=== PATIENT | female | born 1990 | race Caucasian/White ===

== ENCOUNTER 2024-03-15 05:55 | Day surgery (SDC) | payer OTHER, SELFPAY ==
[2024-03-01 13:38] VITALS: BMI 31.6
[2024-03-15] VITALS (8 sets, daily range): BP systolic 115–136; BP diastolic 57–87; PULSE 83–97; RESP 15–22; TEMP 36.8; O2SAT 94–100
--- NOTE | 2024-03-15 06:54 | P.OP_ITS ---
Procedure Note - Detailed Date of Procedure 03/15/24 Pre-op Diagnosis Macromastia Post-op Diagnosis Same Procedure Performed Bilateral reduction mammaplasty Surgeon Ramon Mancilla MD Anesthesia General Findings Inverted T Superior medial pedicle Tissue removed: Right: 707 grams Left: 812 grams Lipoaspirate: 150 cc Description of Procedure She is here today for bilateral breast reduction. Previously and again today the risks, benefits, alternatives were discussed in extensive detail. I wanted her to be very realistic about the risks involved as well as expectations. We discussed aftercare and what to monitor for. She understands we can never guarantee final breast size and there will always be asymmetry. I was very upfront and honest about the risks of sensation change and even nipple loss (). Made sure answered all of her questions to her satisfaction today and consent was obtained. She was marked in the preoperative holding area with their verification. The patient was taken to the operating room placed supine on the operating table. Anesthesia was provided by anesthesiology. She was prepped and draped in a standard sterile fashion. A surgical time-out was taken. Stab incisions were made and I tumesced with a tumescent solution. Suction lipectomy of lateral breast / chest wall was completed for contouring based on S.A.F.E. liposuction techniques utilizing a 4mm merecedes cannula. This was based on preoperative planning, intraoperative observation, and a rolling pinch test which was in full agreement. I marked out the nipple-areolar complex at 42 mm. I then de-epithelialized the pedicle. The pedicle was well left well more than 2 cm in thickness. I then removed the inferior portion of the breast as well as the central keel to get shape based on preoperative planning. At this point copiously irrigated with saline solution and verified a strict hemostasis. I reapproximated the pillars using a 2-0 PDS. I tailor tacked the breast into place with jeaneth. She was placed in a sitting position. I verified the nipple-areolar complex position based on preoperative markings, intraoperative measurements, and observation which were in full agreement. This nipple-areolar complex was marked at 42 mm in size. I then placed supine and de-epithelialized this. Nipple-areolar complex was inset with 3-0 Monocryl. I closed IMF deep with 1 strattafix. I closed the vertical incision with 3-0 Monocryl in the IMF with 3- 0 stratafix. Then everything was closed using a running subcuticular 4-0 Monocryl and tissue glue. A dressing was placed followed by surgical bra. Patient was awoke and taken to PACU without difficulty. All instrument sponge counts were correct at the end of the case. Estimated Blood Loss 100 Drains No Packing No Pathology Yes (bilateral breast reduction) Complications No immediate complications Condition Stable Disposition PACU
--- NOTE | 2024-03-15 06:54 | WPDHPUPDATE1 ---
History and Physical Update Update Date/Time: 03/15/24 06:54 History and Physical has been reviewed, including an updated exam of the patient. There are NO changes in the patient's condition. Risks, benefits, and alternatives have been discussed and questions answered. Patient agrees to proceed with procedure.
--- NOTE | 2024-03-15 06:58 | P.PNAN_ITS ---
Anes - Initial Pre Proc Eval Procedure: Operation Date: 03/15/24 07:30 Proposed Procedures p Bilateral Breast Reduction Mammoplasty - Ramon Mancilla MD Date/Time: 03/15/24 06:58 Surgeon: Ramon Mancilla MD Pre Op Diagnosis: Macromastia Patient Data Age: 34 Gender: F Height: 1.65 m Weight: 88.35 kg Last Vital Signs Temp 36.8 C 03/15/24 06:15 Pulse 97 03/15/24 06:15 Resp 15 03/15/24 06:15 BP 136/87 03/15/24 06:15 Pulse Ox 100 03/15/24 06:15 O2 Del Method Room Air 03/15/24 06:15 Allergies Allergy/AdvReac Type Severity Reaction Status Date / Time No Known Allergies Allergy Unknown Verified 03/15/24 06:14 Home Medications Medication Instructions Recorded Confirmed Type fluoxetine 40 mg capsule 40 mg PO DAILY 03/01/24 03/15/24 History mecobalamin (vitamin B12) 2,500 2,500 mcg PO DAILY 03/01/24 03/15/24 History mcg chewable tablet Patient hx anesthesia problems: none Family hx anesthesia problems: none Results Review: All pre-operative results and documents have been reviewed as part of the pre- operative evaluation. [facility] Past Medical History Medical History (Updated 03/15/24 @ 06:58 by Oz Pope DO) Anxiety Social History Social History Smoking status: Never smoker Second hand tobacco smoke exposure: Yes Alcohol intake: current Drinks per week: 2 Substance use type: does not use Living arrangements: with family Spiritual care concerns: No Anes - Eval Final PreProcedure Day of Procedure 03/15/24 06:58 Patient weight: obese Heart: regular rate and rhythm Lungs: clear to auscultation Airway: Mallampati scale class III Neurological: alert and oriented Last oral intake: >/= 8 hours ASA classification: II Emergent: no Anesthetic plan: proceed Anesthesia type and monitoring: general ETT and standard monitoring Results Review: All pre-operative results and documents have been reviewed as part of the pre- operative evaluation. Informed Consent: The patient's anesthetic plan and its attendant risks and benefits were discussed with the patient/family/POA. Questions were solicited and answers provided to the satisfaction of the patient/family/POA.
[2024-03-15] MEDS: SCOPOLAMINE 1 MG PATCH 1 PATCH TRANSDERM (07:18)
[2024-03-15] MEDS: LACTATED RINGERS 1,000 ML 30 ML IV CONT ×2 (07:18→10:27)
[2024-03-15] MEDS: ceFAZolin SODIUM 2 GM/20 ML SW SYRINGE IV PUSH (07:22)
[2024-03-15] MEDS: TRANEXAMIC ACID 1,000 MG/10 ML AMPUL 1000 MG IV PUSH (07:35)
[2024-03-15] MEDS: LACTATED RINGERS IRRIG 1,000 ML, LIDOCAINE HCL 1% LOCAL INJ 50 ML, EPINEPHrine HCL INJ ... INFILTRATE (07:44)
[2024-03-15] MEDS: fentaNYL CITRATE INJ (*CRX) 100 MCG/2 ML VIAL 25 MCG IV PUSH ×3 (11:03→11:27)
--- NOTE | 2024-03-15 11:23 | WPDANESPN ---
Anes - Prog Note Post-Op Date/Time: 03/15/24 11:23 Cardiovascular status: normal Respiratory status: normal Airway patency: baseline Mental status: baseline Post-Op hydration status: normal Vital Signs: Last Vital Signs Temp 36.8 C 03/15/24 10:27 Pulse 90 03/15/24 11:10 Resp 18 03/15/24 11:10 BP 128/65 03/15/24 11:10 Pulse Ox 95 03/15/24 11:10 O2 Del Method Room Air 03/15/24 11:10 O2 Flow Rate 6 03/15/24 10:40 Pain Score (VAS): 3 I/O: Intake & Output 03/14/24 03/15/24 03/15/24 23:59 07:59 15:59 Intake Total 100 Balance 100 Post-procedural complaints: none Patient Feedback: Patient satisfied with anesthetic care. Other Findings: Patient vital signs back to baseline. Patient denies nausea and vomiting. Patient's pain under control. Patient OK for discharge.
--- NOTE | 2024-03-15 11:29 | SUR.PHASEII ---
PT AWAKE AND ALERT. EATING ICE CHIPS. SPOUSE AT BEDSIDE
--- NOTE | 2024-03-15 12:24 | SUR.PHASEII ---
1200; PT WAS SITTING UPRIGHT, GETTING READY TO GET DRESSED AND BECAME NAUSEATED. MILD DIAPHORETIC. COLD CLOTH GIVEN TO PT. PT SITTING UP AND RESTING QUIETLY. SPOUSE AT BEDSIDE.
--- NOTE | 2024-03-15 12:42 | SUR.PHASEII ---
1226; PT DRESSED AND STANDING AT BEDSIDE. PT STATES SHES READY TO GO HOME.
== END 2024-03-15 12:30 ==
PROVIDERS: PCP Physician Assistant; Visit Provider Surgery Plastic and Reconstructive Surgery
PROC: 0HBV0ZZ Excision of Bilateral Breast, Open Approach (ICD-10-PCS; CPT 19318; principal; 2024-03-15 07:30)
DX: N62 Hypertrophy of breast (principal)
CPT/HCPCS: 19318

== ENCOUNTER 2024-03-15 12:51 | Outpatient (NON) | payer OTHER, SELFPAY | END 2024-03-15 12:52 | disposition home or self-care (01) | LOC: ANHLAB 12:53 | PROVIDERS: PCP Physician Assistant; Visit Provider Surgery Plastic and Reconstructive Surgery | DX: N62 Hypertrophy of breast (principal) | CPT/HCPCS: 88305 ==

== ENCOUNTER 2024-09-20 12:04 | Outpatient (CLI) | payer OTHER, SELFPAY ==
--- NOTE | ~2024-09-20 | MMUS_ITS ---
EXAMINATION: MM diagnostic elva BI w pedro, US breast BI limited HISTORY: Bilateral palpable abnormalities. Interval bilateral reduction mammoplasty since prior mammo graphy. TECHNIQUE: 3-D tomosynthesis images of the breasts were performed and synthetic 2-D images were gener ated. CAD analysis was submitted and interpreted. High resolution limited bilateral breast ultrasound was performed. COMPARISON: 01/08/2024 BREAST PARENCHYMAL COMPOSITION:Not Dense. There are scattered areas of fibroglandular density. FINDINGS: MAMMOGRAPHIC FINDINGS: There is probable postsurgical distortion bilaterally. There is a somewhat asymmetric spiculated dens ity at the posterior, central left breast, which is favored to represent postoperative change. No ann picious meniscal calcifications. ULTRASOUND: Sonographic imaging at the 6:00 position left breast, 9 cm from the nipple demonstrates a 1.4 x 0.9 x 0.5 cm somewhat mixed echogenicity area, overall wider than tall. This could reflect fat necrosis. Sonographic imaging of the right breast at the 5:00 position, 7 cm the nipple demonstrates no sonogra phic abnormality. IMPRESSION: 1.4 x 0.9 x 0.5 cm mixed echogenicity area in the left breast 6:00 position, which may correlate wit h an area of asymmetric density, which is felt overall to most likely represent postoperative change and/or evolving fat necrosis. Six-month follow-up left mammogram and ultrasound recommended. No mammographic or sonographic abnormality seen in the right breast. BI-RADS category 3, probably benign findings. Reviewed, dictated and finalized at [facility]. GER OPERATOR HELPER IMPRESSION: 1.4 x 0.9 x 0.5 cm mixed echogenicity area in the left breast 6:00 position, w hich may correlate with an area of asymmetric density, which is felt overall to most likely represent postoperative change and/or evolving fat necrosis. Six-m onth follow-up left mammogram and ultrasound recommended. No mammographic or sonographic abnormality seen in the right breast. BI-RADS category 3, probably benign findings. IMPRESSION: 1.4 x 0.9 x 0.5 cm mixed echogenicity area in the left breast 6:00 position, w hich may correlate with an area of asymmetric density, which is felt overall to most likely represent postoperative change and/or evolving fat necrosis. Six-m [facility] follow-up left mammogram and ultrasound recommended. No mammographic or sonographic abnormality seen in the right breast. BI-RADS category 3, probably benign findings.
--- OUTSIDE RECORDS SUMMARY | 2024-09-20 13:45 | XMS_ITS | Data Portability ---
[facility] Organization [facility] Address [address] [place] [address] Care Team Providers Care Building Architect Name Role Phone CHELY CURRYIE Primary Care Provider Unavailab le Assessment Encounter Date Assessment Date Assessment LastModified by Organization Details LastModified Time 02/08/2024 02/08/2024 Mammogram beginning of january. Not available 02/08/2024 09:15:50 Plan of Treatment Reminders Order Date Submit Date Provider Last Modified By Organization Details Last Modified Time Details Appointments None record ed. Lab None record ed. Referral None record ed. Procedures None record ed. Surgeries None record ed. Imaging None record ed. Medication Orders None record ed. Patient TargetsNo targets recorded. Patient Instructions Encounter Date Encounter Id Patient Instructions Last Modified By Organization Details Last Modified Time 02/08/2024 [id number] A healthy lifestyle: care instructions Not available 02/08/2024 09:30:33 Reason for Referral None Reported. Results Created Date Observation Date Name Description Value Unit Range Abnormal Flag Note LastModifiedBy Organization Detail LastModifiedTime Result Notes None recorded. Problems Name Problem SNOMED Code Status Onset Date Resolution Date Notes Provider Name and Address Organization Details Recorded Time Body mass index 30+ - obesity 336902606 Active 024 CLIFFORD Bridges Attn: Accounting ,[address] [place], [address] , [facility] 09:13:15 Obesity 252928074 Active 024 CLIFFORD Bridges Attn: Accounting ,[address] [facility], [place], [address] , [facility] 09:13:16 Problem Notes None recorded. Procedures Surgical History Date Name Laterality Status Provider Name and Address Organization Details Recorded Time Breast Surgery completed Liban Walter MA [facility] 02/08/2024 09:48:17 Imaging Results None recorded. Procedure Notes None recorded. Medical Equipment None Reported. Allergies No known drug allergies Medications Name Sig Start Date Stop Date Status Note LastModified by Organization Details LastModified Time fluoxetine 40 mg capsule TAKE 1 CAPSULE BY MOUTH ONCE DAILY active Not Available Not Available No t Available Elinest 0.3 mg-30 mcg tablet TAKE 1 TABLET BY MOUTH ONCE DAILY active Not Available Not Available No t Available Vitals Date Recorded Body height Body mass index (BMI) Body weight Respiratory rate Oxygen saturation Oxygen saturation in Arterial blood by Pulse oximetry Heart rate Systolic blood pressure Diastolic blood pressure Provider Name and Address Organization Details Last Updated DateTime 165.1 cm 32 kg/m2 57185.8 8 g 18 /min 98 % 98 % 97 /min 128 mm[Hg] 88 mm[Hg] Liban Walter MA [facility] 09:09:16 Date Recorded Systolic blood pressure Diastolic blood pressure Provider Name and Address Organization Details Last Updated DateTime 02/08/2024 120 mm[Hg] 80 mm[Hg] CLIFFORD Bridges Attn: Accounting,[address] [place], [address], [facility] 02/08/2024 09:30:10 Social History Question Answer Notes LastModified by Organizat ion Details LastModified Time Tobacco Smoking Status Never Smoker Liban Walter MA null, [facility] 02/08/2024 09:05:53 Do You Have An Advance Directive? No Information not available 02/08/2024 What Is Your Level Of Alcohol Consumption? Occasional Information not available 02/08/2024 Are You Blind Or Do You Have Difficulty Seeing? No Glasses Information not available 02/08/2024 What Is Your Level Of Caffeine Consumption? Moderate Information not available 02/08/2024 In The 14 Days Before Symptom Onset, Have You Had Close Contact With A [facility] COVID-19 While That Case Was Ill? No Information not available 02/08/2024 In The 14 Days Before Symptom Onset, Have You Had Close Contact With A Person Who Is Under Investigation For COVID-19 While That Person Was Ill? No [email or web address] Information not available 02/08/2024 Have You Been To An Area Known To Be High Risk For COVID-19? No [email or web address] Information not available 02/08/2024 Are You Deaf Or Do You Have Serious Difficulty Hearing? No Information not available 02/08/2024 What Type Of Diet Are You Following? REGULAR Information not available 02/08/2024 Are There Any Guns Present In Your Home? No Information not available 02/08/2024 What Was The Date Of Your Most Recent Tobacco Screening? 02/08/2024 Information not available 02/08/2024 Do You Use Your Seat Belt Or Car Seat Routinely? Yes Information not available 02/08/2024 Do You Have Smoke And Carbon Monoxide Detectors In Your Home? Yes Information not available 02/08/2024 Do You Feel Stressed (tense, Restless, Nervous, Or Anxious, Or Unable To Sleep At Night)? [id number] Information not available 02/08/2024 Do You Use Sunscreen Routinely? Yes Information not available 02/08/2024 Has Tobacco Cessation Counseling Been Provided? Yes Information not available 02/08/2024 On What Date Was Tobacco Cessation Counseling Provided? 02/08/2024 Information not available 02/08/2024 Do You Or Have You Ever Used Any Other Forms Of Tobacco Or Nicotine? No Information not available 02/08/2024 Sex: Female Functional Status Question Answer Note LastModified by Organizat ion Details LastModified Time Are you able to care for yourself? Yes [email or web address] Information not available 02/08/2024 What is your exercise level? Occasional Information not available 02/08/2024 Mental Status None recorded. Family History Relationship Description Onset Age of this Age Resolved Age Notes LastModified by Organization Details LastModified Time Father No current problems or disability [email or web address] Not available 02/07 09:06:14 Mother No current problems or disability [email or web address] Not available 02/07 09:06:14 Notes:pt. confirmed that the ir aren't any current problem in any of her family Medical History Condition Response Anxiety Disorder Y Gynecological History Statement/Question Response Flow Light Date of LMP 01/20/2024 Menses Monthly Y Duration of Flow (days) 28 Current Control Method BCPs LMP Approximate Obstetrics History GPAL:G 2 P 2 0 0 2 Type Value Full Term 2 Induced 0 Spontaneous 0 Premature 0 Living 2 Total 2 Past Encounters Encounter ID Performer Location Encounter Start Date Encounter Closed Date Diagnosis/Indication Diagnosis SNOMED-CT Code Diagnosis ICD10 Code Diagnosis Note [id number] CLIFFORD Bridges [facility] [employer] [place] [address] [place] [address] 02/08/2024 08:54:48 02/08/2024 09:32:13 Body mass index 30+ - obesity 426032417 Z68.32 BMI is 32 Obesity 890037503 E66.8 Adult heal th examination 679217414 Z00.00 Annual wellness exam is completed. All labs are still up-to-date from the last office. Long-term drug therapy 228494285 Z79.899 Health Concerns Section Related Observation LastModified by Organization Detai ls LastModified Time None Recorded Concern Status LastModified by Organization Details LastModified Time None Recorded Advance Directives Directive N: Payers Encounter Date Sequence Insurance Name Policy Number Policy Norris Covered Member ID Norris Member ID Guarantor Name 02/08/2024 1 [place] [id number] A Brian Mckenzie [id number] Brian Mckenzie Notes Date Note Type Note Provider Name and Address Organization Details Recorded Time 02/08/2024 text/html Anxiety/Depressi o nReported bypatient.Notes:P atient is stable on fluoxetine 40 mg daily for anxiety. No new complaints CLIFFORD Bridges Attn: Accounting,[address] [place], [address], [facility] 02/23/2024 12:25:17 OBGyn Episode No OBEpisode recorded.
--- OUTSIDE RECORDS SUMMARY | 2024-09-20 13:45 | XMS_ITS | Clinical Summary ---
Author Organization [facility] Address [address] [place] [address] Care Team Providers Care Cytogenetics Laboratory Manager Name Role Phone Unavailable Primary Care Provider Unavailabl e Encounters Date Type Department Care Team Description 09/12/2024 External Device Data [facility] ABSTRACTION Provider, Abstract 08/17/2024 External Device Data [facility] ABSTRACTION Provider, Abstract 08/16/2024 External Device Data [facility] ABSTRACTION Provider, Abstract 08/15/2024 External Device Data [facility] ABSTRACTION Provider, Abstract from Last 3 Months Social History Tobacco Use Types Packs/Day Years Used Date Smoking Tobacco: Never Assessed Comments Unknown Sex and Gender Information Value Date Recorded Sex Assigned at Not on file Legal Sex Female 11:23 AM CDT Gender Identity Not on file Sexual Orientation Not on file Plan of Treatment Health Maintenance Due Date Last Done Comments Pre-Diabetes and Diabetes Screening 1989 HPV VACCINES (2 - 3-dose series) 12/15/2007 11/17/19 08 HEPATITIS B VACCINES (1 of 3 - 19+ 3-dose series) 02/21/2008 CERVICAL CANCER SCREENING 2019 DTAP/TDAP/TD VACCINES (2 - T d or Tdap) 04/14/2023 04/14/2013 INFLUENZA VACCINE (#1) 2024 2, 06/30/2019, 04/25/2015 Insurance [facility] BLUE ACCESS CHOICE
--- OUTSIDE RECORDS SUMMARY | 2024-09-20 13:45 | XMS_ITS | Encounter Summary ---
Author Organization [facility] Address [address] [place] [address] Phone Care Team Providers Care Migratory Farm Hand Name Role Phone Arlette Lim NP Primary Care Provider [phone] Anita Silva Primary Care Pr ovider Encounter Details Date Type Department Care Team (Late st Contact Info) Description 11/22/2017 Orders Only [facility] ProviderMeme MD [facility] [place] [id number] Social History Tobacco Use Types Packs/Day Years Used Date Smoking Tobacco: Never Smokeless Tobacco: Never Alcohol Use Standard Drinks/Week Comments Yes 0 (1 standard drink = 0.6 oz pur e alcohol) Comments No Sex and Gender Information Value Date Recorded Sex Assigned at Not on file Legal Sex Female 12:50 AM SHOE HANDLER Gender Identity Not on file Sexual Orientation Not on file 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 us Historical Provider LAB CYTOLOGY ORDERABLES F inal Result documented in this encounter Visit Diagnoses Not on filedocumented in this encounter Additional Health Concerns Infection Onset Date Last Indicated Resolved Time COVID: Suspected 07/11/2020 07/11/2020 07/12/2020 12:53 AM SHOE HANDLER Respiratory Infection (HEIKE), contact + droplet Comment:Automatically added due to negative COVID-19 result. 07/12/2020 07/12/2020 07/26/2020 3:0 5 AM SHOE HANDLER MRSA Comment:L nostril wd. 08/13/21 08/13/2021 08/13/2021 02/09/2022 3:05 AM CDT COVID: Suspected 05/22/2022 05/22/2022 05/22/2022 11:40 AM CDT COVID: Suspected 05/22/2022 05/22/2022 05/22/2022 5:43 PM CDT COVID: Suspected 09/19/2024 09/19/2024 09/19/2024 11:52 AM SHOE HANDLER COVID19 09/19/2024 09/19/2024 documented as of this encounter Care Teams Migratory Farm Hand Relationship Specialty [place] [address] [address] PCP - General 10/23/16 05/21/22 [place] [address] [address] [address] PCP - General Physician Ammonium Nitrate Crystallizer 05/22/22 documented as of this encounter
--- OUTSIDE RECORDS SUMMARY | 2024-09-20 13:45 | XMS_ITS | Clinical Summary ---
Author Organization [facility] Address [address] [place] [address] Phone Care Team Providers Care House Moving Supervisor Name Role Phone Provider, None Primary Care Provider Unavailabl e Allergies No known active allergies Medications Tri-Sprintec 0.18/0.215/0.25 MG-35 MCG Tablet TAKE 1 TABLET BY MOUTH ONCE DAILY 06/27/2020 Active Social History Tobacco Use Types Packs/Day Years Used Date Smoking Tobacco: Never Smokeless Tobacco: Never Comments No Sex and Gender Information Value Date Recorded Sex Assigned at Not on file Legal Sex Female 5:40 PM CDT Gender Identity Not on file Sexual Orientation Not on file Last Filed Vital Signs Vital Sign Reading Time Taken Comments Blood Pressure 118/74 07/07/2020 10:20 AM FISHING LINE WINDING MACHINE OPERATOR Pulse 86 07/07/2020 10:20 AM FISHING LINE WINDING MACHINE OPERATOR Temperature 37 C (98.6 F) 07/07/2020 10:20 AM FISHING LINE WINDING MACHINE OPERATOR Respiratory Rate 18 07/07/2020 10:20 AM FISHING LINE WINDING MACHINE OPERATOR Oxygen Saturation 98% 07/07/2020 10:20 AM FISHING LINE WINDING MACHINE OPERATOR Inhaled Oxygen Concentration - - Weight 80.7 kg (178 lb) 07/07/2020 10:20 AM FISHING LINE WINDING MACHINE OPERATOR Height - - Body Mass Index - - Plan of Treatment Health Maintenance Due Date Last Done Comments Hepatitis C Virus (HCV) Screening 1989 Hepatitis B Immunization (1 of 3 - 19+ 3-dose series) 02/21/2008 Pap Smear 2010 Cervical Cancer Screening (CCS) 2019 HPV/Cotest 2019 Influenza Immunization (#1) 03/26/202404/25, 05/07/2018, 05/17/2015 SARS-COV-2 Immunization ( season) 2024 11/10/2020, 10/19/2020 Respiratory Syncytial Virus (RSV) Immunization (Adult) (1 - 1-dose 75+ series) 02/21/2064 DTaP/Tdap/Td Immunization Discontinued 07/28/2018 TdaP Immunization Completed 07/28/2018 Meningococcal Immunization (ACWY) Aged Out No longer eligible based on patient's age to complete this topic Pneumococcal Immunization Combined Aged Out No longer eligible based on patient's age to complete this topic Rotavirus Immunization Aged Out No lo nger eligible based on patient's age to complete this topic Insurance [facility] Care Teams House Moving Supervisor Relationship Specialty Start Date End Date Provider, None [place] PCP - General 07/09/20
--- OUTSIDE RECORDS SUMMARY | 2024-09-20 13:45 | XMS_ITS | Data Portability ---
Author Organization [facility], Main Office Address [address] [place] [address] Assessment No assessment recorded. Plan of Treatment Reminders Order Date Submit Date Provider Last Modified By Organization Details Last Modified Time Details Appointments None recorded. Lab lipid panel, serum 2022 023 [facility], [address], [address], [place], [address], 3 04:26:20 urinalysis complete, reflex culture 2022 023 [facility], [address], [address], [place], [address], 3 03:47:28 CMP, serum or plasma 2022 023 [facility], [address], [address], [place], [address], 3 04:26:20 CBC w/ auto diff 2022 023 [facility], [address], [address], [place], [address], 3 03:47:27 TSH + free T4, serum 2022 023 [facility], [address], [address], [place], [address], 3 04:26:18 HbA1c (hemoglobin A1c), blood 2022 023 [facility], [address], [address], 03:47:25 Referral None recorded. Procedures None recorded. Surgeries None recorded. Imaging None recorded. Medication Orders Zithromax Z-Steve 250 mg tablet 2022 023 [id number], [address], [place], [id number], 11:56:05 Patient TargetsNo targets recorded. Patient InstructionsNo instructions recorded. Reason for Referral None Reported. Results Created Date Observation Date Name Description Value Unit Range Abnormal Flag Note LastModifiedBy Organization Detail LastModifiedTime 06/18/2006/19/2021 CBC (INCL UDES DIFF/ PLT) white blood cell count 5.8 thous and/u L 3.8-10 .8 normal Not Available [facility] [address] [address] [place], [address], 06/19/2021 08:00:08 06/18/2006/19/2021 CBC (INCL UDES DIFF/ PLT) red blood cell count 4.42 davis on/uL 3.80-5 .10 normal Not Available [facility] [address] [address] [place], [address], 06/19/2021 08:00:08 06/18/2006/19/2021 CBC (INCL UDES DIFF/ PLT) hemoglobin 12.8 g/dL 11.7-1 5.5 normal Not Available [facility] [address] [address] [place], [address], 06/19/2021 08:00:08 06/18/2006/19/2021 CBC (INCL UDES DIFF/ PLT) hematocrit 39.0 % 35.0-4 5.0 normal Not Available [facility] [address] [address] [place], [address], 06/19/2021 08:00:08 06/18/20 21 06/19/2021 CBC (INCL UDES DIFF/ PLT) MCV 88.2 fL 80.0-1 00.0 normal Not Available [address], [address], 06/19/2021 08:00:08 06/18/2006/19/2021 CBC (INCL UDES DIFF/ PLT) MCH 29.0 pg 27.0-3 3.0 normal Not Available [address], [address], 06/19/2021 08:00:08 06/18/2006/19/2021 CBC (INCL UDES DIFF/ PLT) MCHC 32.8 g/dL 32.0-3 6.0 normal Not Available [address], [address], 06/19/2021 08:00:08 06/18/20 21 06/19/2021 CBC (INCL UDES DIFF/ PLT) RDW 12.1 % 11.0-1 5.0 normal Not Available [address], [address], 06/19/2021 08:00:08 06/18/20 21 06/19/2021 CBC (INCL UDES DIFF/ PLT) platelet count 245 thous and/u L 140-40 0 normal Not Available [address], [address], 06/19/2021 08:00:08 06/18/20 21 06/19/2021 CBC (INCL UDES DIFF/ PLT) MPV 10.3 fL 7.5-12 .5 normal Not Available [address], [address], 06/19/2021 08:00:08 06/18/20 21 06/19/2021 CBC (INCL UDES DIFF/ PLT) absolute neutrophils 3428 cells /uL 1500-7 800 normal Not Available [address], [address], 06/19/2021 08:00:08 06/18/20 21 06/19/2021 CBC (INCL UDES DIFF/ PLT) absolute lymphocytes 1734 cells /uL 850-39 00 normal Not Available [address], [address], 06/19/2021 08:00:08 06/18/2006/19/2021 CBC (INCL UDES DIFF/ PLT) absolute monocytes 406 cells /uL 200-95 0 normal Not Available [address], [address], 06/19/2021 08:00:08 06/18/2006/19/2021 CBC (INCL UDES DIFF/ PLT) absolute eosinophils 203 cells /uL 15-500 normal Not Available [address], [address], 06/19/2021 08:00:08 06/18/20 21 06/19/2021 CBC (INCL UDES DIFF/ PLT) absolute basophils 29 cells /uL 0-200 normal Not Available [address], [address], 06/19/2021 08:00:08 06/18/2006/19/2021 CBC (INCL UDES DIFF/ PLT) neutrophils 59.1 % normal Not Available [address], [address], 06/19/2021 08:00:08 06/18/20 21 06/19/2021 CBC (INCL UDES DIFF/ PLT) lymphocytes 29.9 % normal Not Available [address], [address], 06/19/2021 08:00:08 06/18/20 21 06/19/2021 CBC (INCL UDES DIFF/ PLT) monocytes 7.0 % normal Not Available [address], [address], 06/19/2021 08:00:08 06/18/20 21 06/19/2021 CBC (INCL UDES DIFF/ PLT) eosinophils 3.5 % normal Not Available [address], [address], 06/19/2021 08:00:08 06/18/20 21 06/19/2021 CBC (INCL UDES DIFF/ PLT) basophils 0.5 % normal Not Available [address], [address], 06/19/2021 08:00:08 06/18/20 21 06/19/2021 HEMOG LOBIN A1C hemoglobin A1C 5.0 %_of_ total _HGB <5.7 normal Not Available [address], [address], 06/19/2021 08:00:07 06/18/20 21 06/19/2021 COMPR EHENS SNEHA METAB OLIC PANEL glucose 84 mg/dL 65-99 normal Fasti ng refer ence inter don Not Available [address], [address], 06/19/2021 08:00:07 06/18/20 21 06/19/2021 COMPR EHENS SNEHA METAB OLIC PANEL urea nitrogen (BUN) 13 mg/dL 7-25 normal Not Available [address], [address], 06/19/2021 08:00:07 06/18/20 21 06/19/2021 COMPR EHENS SNEHA METAB OLIC PANEL creatinine 0.74 mg/dL 0.50-1 .10 normal Not Available [address], [address], 06/19/2021 08:00:07 06/18/20 21 06/19/2021 COMPR EHENS SNEHA METAB OLIC PANEL eGFR non-afr. pitcairn islander 107 mL/mi n/1.7 3m2 > or = 60 normal Not Available [address], [address], 06/19/2021 08:00:07 06/18/20 21 06/19/2021 COMPR EHENS SNEHA METAB OLIC PANEL eGFR 124 mL/mi n/1.7 3m2 > or = 60 normal Not Available [address], [address], 06/19/2021 08:00:07 06/18/20 21 06/19/2021 COMPR EHENS SNEHA METAB OLIC PANEL BUN/creatini ne ratio not applic able (calc ) 6-22 Not Available [address], [address], 06/19/2021 08:00:07 06/18/20 21 06/19/2021 COMPR EHENS SNEHA METAB OLIC PANEL sodium 136 mmol/ L 135-14 6 normal Not Available [address], [address], 06/19/2021 08:00:07 06/18/20 21 06/19/2021 COMPR EHENS SNEHA METAB OLIC PANEL potassium 4.5 mmol/ L 3.5-5. 3 normal Not Available [address], [address], 06/19/2021 08:00:07 06/18/20 21 06/19/2021 COMPR EHENS SNEHA METAB OLIC PANEL chloride 106 mmol/ L 98-110 normal Not Available [address], [address], 06/19/2021 08:00:07 06/18/20 21 06/19/2021 COMPR EHENS SNEHA METAB OLIC PANEL carbon dioxide 26 mmol/ L 20-32 normal Not Available [address], [address], 06/19/2021 08:00:07 06/18/20 21 06/19/2021 COMPR EHENS SNEHA METAB OLIC PANEL calcium 9.2 mg/dL 8.6-10 .2 normal Not Available [address], [address], 06/19/2021 08:00:07 06/18/20 21 06/19/2021 COMPR EHENS SNEHA METAB OLIC PANEL protein, total 6.9 g/dL 6.1-8. 1 normal Not Available [address], [address], 06/19/2021 08:00:07 06/18/20 21 06/19/2021 COMPR EHENS SNEHA METAB OLIC PANEL albumin 3.9 g/dL 3.6-5. 1 normal Not Available [address], [address], 06/19/2021 08:00:07 06/18/20 21 06/19/2021 COMPR EHENS SNEHA METAB OLIC PANEL globulin 3.0 g/dL_ (calc ) 1.9-3. 7 normal Not Available [address], [address], 06/19/2021 08:00:07 06/18/20 21 06/19/2021 COMPR EHENS SNEHA METAB OLIC PANEL albumin/glob ulin ratio 1.3 (calc ) 1.0-2. 5 normal Not Available [address], [address], 06/19/2021 08:00:07 06/18/20 21 06/19/2021 COMPR EHENS SNEHA METAB OLIC PANEL bilirubin, total 0.3 mg/dL 0.2-1. 2 normal Not Available [address], [address], 06/19/2021 08:00:07 06/18/20 21 06/19/2021 COMPR EHENS SNEHA METAB OLIC PANEL alkaline phosphatase 50 U/L 31-125 normal Not Available [facility] [address] [place], [address], 06/19/2021 08:00:07 06/18/20 21 06/19/2021 COMPR EHENS SNEHA METAB OLIC PANEL AST 13 U/L 10-30 normal Not Available [address] [address] [place], [address], 06/19/2021 08:00:07 06/18/20 21 06/19/2021 COMPR EHENS SNEHA METAB OLIC PANEL ALT 7 U/L 6-29 normal Not Available [address] [address] [place], [address], 06/19/2021 08:00:07 06/18/20 21 06/19/2021 LIPID PANEL WITH RATIO S LDL-choleste rol 101 mg/dL _(denilson c) high Refer ence range : <100 Lorene able range <100 mg/dL for prima ry preve ntion ; <70 mg/dL for patie nts with CHD or diabe tic patie nts with > or = 2 CHD risk facto rs. LDL-C is now calcu lated using the Hafsa n-Hop kins chandleru manpreet n, which is a valid ated novel steven kruger accur acy than the Fried ciro equat ion in the estim ation of LDL-C . Hafsa siddiqui SS et al. MIKAYLA. 2013; 310(1 9): 2061- 2068 (http ://ed ucati on.Qu Hanna gonzaleziCrederitys. com/f aq/FA Q164) Not Available [facility] [address] [place], [address], 06/19/2021 08:00:06 06/18/20 21 06/19/2021 LIPID PANEL WITH RATIO S chol/HDLC ratio 2.8 (calc ) <5.0 normal Not Available [address] [address] [place], [address], 06/19/2021 08:00:06 06/18/20 21 06/19/2021 LIPID PANEL WITH RATIO S LDL/HDL ratio 1.5 (calc ) Below avera ge Risk: <2.34 [place] ge Risk: 2.35- 4.12 Moder ate Risk: 4.13- 5.56 High Risk: >5.57 Not Available [address] [address] [place], [address], 06/19/2021 08:00:06 06/18/2006/19/2021 LIPID PANEL WITH RATIO S non HDL cholesterol 121 mg/dL _(denilson c) <130 normal For patie nts with diabe kimi plus 1 major ASCVD risk facto r, treat ing to a non-H DL-C goal of <100 mg/dL (LDL- C of <70 mg/dL ) is consi osito a jovanny sprague c optio n. Not Available [address] [address] [place], [address], 06/19/2021 08:00:06 06/18/20 21 06/19/2021 LIPID PANEL WITH RATIO S cholesterol, total 189 mg/dL <200 normal Not Available [address] [address] [place], [address], 06/19/2021 08:00:06 06/18/20 21 06/19/2021 LIPID PANEL WITH RATIO S HDL cholesterol 68 mg/dL > or = 50 normal Not Available [facility] [address] [address] [place], [address], 06/19/2021 08:00:06 06/18/20 21 06/19/2021 LIPID PANEL WITH RATIO S triglyceride s 108 mg/dL <150 normal Not Available [facility] [address] [address] [place], [address], 06/19/2021 08:00:06 06/18/20 21 06/19/2021 TSH+F REE T4 TSH 2.31 mIU/L normal Refer ence Range > or = 20 Years 0.40- 4.50 Pregn antoinette Range s First trime ster 0.26- 2.66 Secon d trime ster 0.55- 2.73 Third trime ster 0.43- 2.91 Not Available [facility] [address] [place], [address], 06/19/2021 08:00:05 06/18/20 21 06/19/2021 TSH+F REE T4 T4, free 1.1 NG/dL 0.8-1. 8 normal Not Available [facility] [address] [address] , [place], [address], 06/19/2021 08:00:05 11/07/19 23 11/07/2022 HEMOG LOBIN A1C hemoglobin A1C 5.0 %_of_ total _HGB <5.7 normal For the purpo se of screkate palacios for the prese nce of diabe kimi: <5.7% Consi stent with the absen ce of diabe kimi 5.7-6 .4% Consi stent with incre ased risk for diabe kimi (pred iabet es) > or =6.5% Consi stent with diabe kimi This assay resul t is consi stent with a decre ased risk of diabe kimi. Curre ntly, no conse nsus exist s tabitha lozoya use of hemog lobin A1c for diagn osis of diabe kimi in child akrl. Accor ding to Ameri can Diabe kimi Assoc iatio n (ADA) guide lines , hemog lobin A1c <7.0% repre sents optim al contr ol in non-p regna nt diabe tic patie nts. Diffe rent metri cs may apply to speci fic patie nt popul ation s. Stand ards of Medic al Care in Diabe kimi(A DA). Not Available [facility] [address] [place], [address], 11/07/2022 03:47:25 11/07/19 23 11/07/2022 CBC (INCL UDES DIFF/ PLT) white blood cell count 7.4 thous and/u L 3.8-10 .8 normal Not Available [address], [address], 11/07/2022 03:47:27 11/07/19 23 11/07/2022 CBC (INCL UDES DIFF/ PLT) red blood cell count 4.57 davis on/uL 3.80-5 .10 normal Not Available [address], [address], 11/07/2022 03:47:27 11/07/19 23 11/07/2022 CBC (INCL UDES DIFF/ PLT) hemoglobin 13.6 g/dL 11.7-1 5.5 normal Not Available [address], [address], 11/07/2022 03:47:27 11/07/19 23 11/07/2022 CBC (INCL UDES DIFF/ PLT) hematocrit 41.2 % 35.0-4 5.0 normal Not Available [address], [address], 11/07/2022 03:47:27 11/07/19 23 11/07/2022 CBC (INCL UDES DIFF/ PLT) MCV 90.2 fL 80.0-1 00.0 normal Not Available [address], [address], 11/07/2022 03:47:27 11/07/19 23 11/07/2022 CBC (INCL UDES DIFF/ PLT) MCH 29.8 pg 27.0-3 3.0 normal Not Available [address], [address], 11/07/2022 03:47:27 11/07/19 23 11/07/2022 CBC (INCL UDES DIFF/ PLT) MCHC 33.0 g/dL 32.0-3 6.0 normal Not Available [address], [address], 11/07/2022 03:47:27 11/07/19 23 11/07/2022 CBC (INCL UDES DIFF/ PLT) RDW 12.3 % 11.0-1 5.0 normal Not Available [address], [address], 11/07/2022 03:47:27 11/07/19 23 11/07/2022 CBC (INCL UDES DIFF/ PLT) platelet count 261 thous and/u L 140-40 0 normal Not Available [address], [address], 11/07/2022 03:47:27 11/07/19 23 11/07/2022 CBC (INCL UDES DIFF/ PLT) MPV 10.3 fL 7.5-12 .5 normal Not Available [address], [address], 11/07/2022 03:47:27 11/07/1911/07/2022 CBC (INCL UDES DIFF/ PLT) absolute neutrophils 4729 cells /uL 1500-7 800 normal Not Available [address], [address], 11/07/2022 03:47:27 11/07/1911/07/2022 CBC (INCL UDES DIFF/ PLT) absolute lymphocytes 1946 cells /uL 850-39 00 normal Not Available [address], [address], 11/07/2022 03:47:27 11/07/19 23 11/07/2022 CBC (INCL UDES DIFF/ PLT) absolute monocytes 481 cells /uL 200-95 0 normal Not Available [address], [address], 11/07/2022 03:47:27 11/07/19 23 11/07/2022 CBC (INCL UDES DIFF/ PLT) absolute eosinophils 207 cells /uL 15-500 normal Not Available [address], [address], 11/07/2022 03:47:27 11/07/19 23 11/07/2022 CBC (INCL UDES DIFF/ PLT) absolute basophils 37 cells /uL 0-200 normal Not Available [address], [address], 11/07/2022 03:47:27 11/07/19 23 11/07/2022 CBC (INCL UDES DIFF/ PLT) neutrophils 63.9 % normal Not Available [address], [address], 11/07/2022 03:47:27 11/07/19 23 11/07/2022 CBC (INCL UDES DIFF/ PLT) lymphocytes 26.3 % normal Not Available [facility] [address], [address], 11/07/2022 03:47:27 11/07/19 23 11/07/2022 CBC (INCL UDES DIFF/ PLT) monocytes 6.5 % normal Not Available [facility] [address], [address], 11/07/2022 03:47:27 11/07/19 23 11/07/2022 CBC (INCL UDES DIFF/ PLT) eosinophils 2.8 % normal Not Available [facility] [address], [address], 11/07/2022 03:47:27 11/07/19 23 11/07/2022 CBC (INCL UDES DIFF/ PLT) basophils 0.5 % normal Not Available [facility] [address], [address], 11/07/2022 03:47:27 11/07/1911/07/2022 URINA LYSIS , COMPL ETE W/REF ANATOLY TO CULTU RE color YELLOW yellow normal Not Available [address], [address], 11/07/2022 03:47:28 11/07/19 23 11/07/2022 URINA LYSIS , COMPL ETE W/REF ANATOLY TO CULTU RE appearance CLOUDY clear abnormal Not Available [address], [address], 11/07/2022 03:47:28 11/07/1911/07/2022 URINA LYSIS , COMPL ETE W/REF ANATOLY TO CULTU RE specific gravity 1.030 1.001- 1.035 normal Not Available [address], [address], 11/07/2022 03:47:28 11/07/19 23 11/07/2022 URINA LYSIS , COMPL ETE W/REF ANATOLY TO CULTU RE pH 6.0 5.0-8. 0 normal Not Available [address], [address], 11/07/2022 03:47:28 11/07/1911/07/2022 URINA LYSIS , COMPL ETE W/REF ANATOLY TO CULTU RE glucose NEGATI VE negati ve normal Not Available [address], [address], 11/07/2022 03:47:28 11/07/1911/07/2022 URINA LYSIS , COMPL ETE W/REF ANATOLY TO CULTU RE bilirubin NEGATI VE negati ve normal Not Available [address], [address], 11/07/2022 03:47:28 11/07/19 23 11/07/2022 URINA LYSIS , COMPL ETE W/REF ANATOLY TO CULTU RE ketones NEGATI VE negati ve normal Not Available [address] [address] [place], [address], 11/07/2022 03:47:28 11/07/1911/07/2022 URINA LYSIS , COMPL ETE W/REF ANATOLY TO CULTU RE occult blood NEGATI VE negati ve normal Not Available [address] [place], [address], 11/07/2022 03:47:28 11/07/1911/07/2022 URINA LYSIS , COMPL ETE W/REF ANATOLY TO CULTU RE protein NEGATI VE negati ve normal Not Available [address], [address], 11/07/2022 03:47:28 11/07/19 23 11/07/2022 URINA LYSIS , COMPL ETE W/REF ANATOLY TO CULTU RE nitrite NEGATI VE negati ve normal Not Available [address], [address], 11/07/2022 03:47:28 11/07/19 23 11/07/2022 URINA LYSIS , COMPL ETE W/REF ANATOLY TO CULTU RE leukocyte esterase NEGATI VE negati ve normal Not Available [address] [place], [address], 11/07/2022 03:47:28 11/07/19 23 11/07/2022 URINA LYSIS , COMPL ETE W/REF ANATOLY TO CULTU RE WBC NONE SEEN /hpf < or = 5 normal Not Available [address], [address], 11/07/2022 03:47:28 11/07/19 23 11/07/2022 URINA LYSIS , COMPL ETE W/REF ANATOLY TO CULTU RE RBC NONE SEEN /hpf < or = 2 normal Not Available [facility] [address] [place], [address], 11/07/2022 03:47:28 11/07/19 23 11/07/2022 URINA LYSIS , COMPL ETE W/REF ANATOLY TO CULTU RE squamous epithelial cells 10-20 /hpf < or = 5 abnormal Not Available [address], [address], 11/07/2022 03:47:28 11/07/19 23 11/07/2022 URINA LYSIS , COMPL ETE W/REF ANATOLY TO CULTU RE bacteria NONE SEEN /hpf none seen normal Not Available [facility] [address], [address], 11/07/2022 03:47:28 11/07/19 23 11/07/2022 URINA LYSIS , COMPL ETE W/REF ANATOLY TO CULTU RE hyaline cast NONE SEEN /lpf none seen normal Not Available [address], [address], 11/07/2022 03:47:28 11/07/19 23 11/07/2022 URINA LYSIS , COMPL ETE W/REF ANATOLY TO CULTU RE note This urine was nicole zed for the prese nce of WBC, RBC, bacte natalie, casts , and other forme d eleme nts. Only those eleme nts seen were repor eric. Not Available [address], [address], 11/07/2022 03:47:28 11/07/1911/07/2022 REFLE XIVE URINE CULTU RE reflexive urine culture NO CULTU RE INDIC ATED Not Available [facility] [address], [address], 11/07/2022 03:47:29 11/10/19 23 11/10/2022 TSH+F REE T4 TSH 2.27 mIU/L normal Refer ence Range > or = 20 Years 0.40- 4.50 Pregn antoinette Range s First trime ster 0.26- 2.66 Secon d trime ster 0.55- 2.73 Third trime ster 0.43- 2.91 Not Available [address], [address], 11/10/2022 04:26:18 11/10/19 23 11/10/2022 TSH+F REE T4 T4, free 1.1 NG/dL 0.8-1. 8 normal Not Available [address], [address], 11/10/2022 04:26:18 11/10/19 23 11/10/2022 LIPID PANEL WITH RATIO S cholesterol, total 154 mg/dL <200 normal Not Available [address], [address], 11/10/2022 04:26:20 11/10/19 23 11/10/2022 LIPID PANEL WITH RATIO S HDL cholesterol 53 mg/dL > or = 50 normal Not Available [address], [address], 11/10/2022 04:26:20 11/10/19 23 11/10/2022 LIPID PANEL WITH RATIO S triglyceride s 71 mg/dL <150 normal Not Available [address], [address], 11/10/2022 04:26:20 11/10/19 23 11/10/2022 LIPID PANEL WITH RATIO S LDL-choleste rol 85 mg/dL _(denilson c) normal Refer ence range : <100 Lorene able range <100 mg/dL for prima ry preve ntion ; <70 mg/dL for patie nts with CHD or diabe tic patie nts with > or = 2 CHD risk facto rs. LDL-C is now calcu lated using the Hafsa n-Hop kins calcu manpreet n, which is a valid ated novel damiáno virgie davison r accur acy than the Fried ciro equat ion in the estim ation of LDL-C . Hafsa siddiqui SS et al. MIKAYLA. 2013; 310(1 9): 2061- 2068 (http ://ed ucati on.Yaw gonzalezluma-id. com/f aq/FA Q164) Not Available [address], [address], 11/10/2022 04:26:20 11/10/19 23 11/10/2022 LIPID PANEL WITH RATIO S chol/HDLC ratio 2.9 (calc ) <5.0 normal Not Available [address], [address], 11/10/2022 04:26:20 11/10/1911/10/2022 LIPID PANEL WITH RATIO S LDL/HDL ratio 1.6 (calc ) Below avera ge Risk: <2.34 [place] ge Risk: 2.35- 4.12 Moder ate Risk: 4.13- 5.56 High Risk: >5.57 Not Available [address], [address], 11/10/2022 04:26:20 11/10/1911/10/2022 LIPID PANEL WITH RATIO S non HDL cholesterol 101 mg/dL _(denilson c) <130 normal For patie nts with diabe kimi plus 1 major ASCVD risk facto r, treat ing to a non-H DL-C goal of <100 mg/dL (LDL- C of <70 mg/dL ) is consi dered a ibana peinezi c optio n. Not Available [address], [address], 11/10/2022 04:26:20 11/10/1911/10/2022 COMPR EHENS SNEHA METAB OLIC PANEL glucose 90 mg/dL 65-99 normal Fasti ng refer ence inter don Not Available [address], [address], 11/10/2022 04:26:20 11/10/19 23 11/10/2022 COMPR EHENS SNEHA METAB OLIC PANEL urea nitrogen (BUN) 15 mg/dL 7-25 normal Not Available [address], [address], 11/10/2022 04:26:20 11/10/19 23 11/10/2022 COMPR EHENS SNEHA METAB OLIC PANEL creatinine 0.72 mg/dL 0.50-0 .97 normal Not Available [address], [address], 11/10/2022 04:26:20 11/10/19 23 11/10/2022 COMPR EHENS SNEHA METAB OLIC PANEL eGFR 113 mL/mi n/1.7 3m2 > or = 60 normal The eGFR is based on the CKD-E PI 2020 equat ion. To calcu late the new eGFR from a previ ous Creat inine or Cysta tin C resul t, go to https ://imer conde.lary hayes/keshawn jarrett s/ kdoqi /gfr% 5Fcal culat or Not Available [address] [address] [place], [address], 11/10/2022 04:26:20 11/10/19 23 11/10/2022 COMPR EHENS SNEHA METAB OLIC PANEL BUN/creatini ne ratio NOT APPLIC ABLE (calc ) 6-22 Not Available [address], [address], 11/10/2022 04:26:20 11/10/19 23 11/10/2022 COMPR EHENS SNEHA METAB OLIC PANEL sodium 137 mmol/ L 135-14 6 normal Not Available [address], [address], 11/10/2022 04:26:20 11/10/19 23 11/10/2022 COMPR EHENS SNEHA METAB OLIC PANEL potassium 4.4 mmol/ L 3.5-5. 3 normal Not Available [address], [address], 11/10/2022 04:26:20 11/10/19 23 11/10/2022 COMPR EHENS SNEHA METAB OLIC PANEL chloride 104 mmol/ L 98-110 normal Not Available [address], [address], 11/10/2022 04:26:20 11/10/19 23 11/10/2022 COMPR EHENS SNEHA METAB OLIC PANEL carbon dioxide 27 mmol/ L 20-32 normal Not Available [address], [address], 11/10/2022 04:26:20 11/10/19 23 11/10/2022 COMPR EHENS SNEHA METAB OLIC PANEL calcium 9.1 mg/dL 8.6-10 .2 normal Not Available [address], [address], 11/10/2022 04:26:20 11/10/19 23 11/10/2022 COMPR EHENS SNEHA METAB OLIC PANEL protein, total 7.1 g/dL 6.1-8. 1 normal Not Available [address], [address], 11/10/2022 04:26:20 11/10/19 23 11/10/2022 COMPR EHENS SNEHA METAB OLIC PANEL albumin 4.1 g/dL 3.6-5. 1 normal Not Available [address], [address], 11/10/2022 04:26:20 11/10/19 23 11/10/2022 COMPR EHENS SNEHA METAB OLIC PANEL globulin 3.0 g/dL_ (calc ) 1.9-3. 7 normal Not Available [address], [address], 11/10/2022 04:26:20 11/10/19 23 11/10/2022 COMPR EHENS SNEHA METAB OLIC PANEL albumin/glob ulin ratio 1.4 (calc ) 1.0-2. 5 normal Not Available [address], [address], 11/10/2022 04:26:20 11/10/19 23 11/10/2022 COMPR EHENS SNEHA METAB OLIC PANEL bilirubin, total 0.3 mg/dL 0.2-1. 2 normal Not Available [address], [address], 11/10/2022 04:26:20 11/10/19 23 11/10/2022 COMPR EHENS SNEHA METAB OLIC PANEL alkaline phosphatase 66 U/L 31-125 normal Not Available [address], [address], 11/10/2022 04:26:20 11/10/19 23 11/10/2022 COMPR EHENS SNEHA METAB OLIC PANEL AST 14 U/L 10-30 normal Not Available [address], [address], 11/10/2022 04:26:20 11/10/19 23 11/10/2022 COMPR EHENS SNEHA METAB OLIC PANEL ALT 14 U/L 6-29 normal Not Available [address], [address], 11/10/2022 04:26:20 Result Notes None recorded. Problems Name Problem SNOMED Code Status Onset Date Resolution Date Notes Provider Name and Address Organization Details Recorded Time Otalgia of right ear 9340695213 Active 2021 Not Available [facility] 3 20:01:56 Dysfunctio n of bilateral eustachian tubes 2365219367173 100 Active 2021 Not Available [facility] 3 20:01:56 Acute sinusitis 96145869 Active 2022 Not Available [facility] 3 20:01:56 Low back pain 121513491 Active 2021 Not Available [facility] 3 20:01:56 Upper respirator y infection 99965630 Active 2021 Not Available [facility] 3 20:01:56 Acute pharyngiti s 591533424 Active 2022 CL[facility] [address] [facility], [facility] [address], [place], [address] , [facility] [employer] [facility] 3 11:55:28 Problem Notes None recorded. Procedures Surgical History Date Name Laterality Status Provider Name and Address Organization Details Recorded Time Unlisted procedure breast completed Not Available [facility] 09/23/2022 20:01:03 Imaging Results None recorded. Procedure Notes None recorded. Medical Equipment None Reported. Allergies No known drug allergies Medications Name Sig Start Date Stop Date Status Note LastModified by Organization Details LastModified Time fluoxetine 40 mg capsule TAKE 1 CAPSULE BY MOUTH ONCE DAILY active Not Available Not Available No t Available cyclobenzap rine 10 mg tablet PRN active Not Available Not Available Not Available Aviane 0.1 mg-20 mcg tablet TAKE 1 TABLET BY MOUTH ONCE DAILY 11/06 completed Not Available Not Available Not Available triamcinolo ne acetonide 0.5 % topical cream APPLY TO HANDS AND AFFECTED AREA ON LEG TWICE DAILY FOR UP TO 2 WEEKS 11/06 completed Not Available Not Available Not Available azithromyci n 250 mg tablet TAKE 2 TABLETS (500 MG) BY ORAL ROUTE ONCE DAILY FOR 1 DAY THEN 1 TABLET (250 MG) BY ORAL ROUTE ONCE DAILY FOR 4 DAYS active Not Available Not Available No t Available prednisone 20 mg tablet Take 2 tablets every day by oral route in the morning for 5 days. active Not Available Not Available No t Available sulfamethox azole 800 mg-trimetho prim 160 mg tablet Take 1 tablet every 12 hours by oral route with meals. active Not Available Not Available No t Available amoxicillin 875 mg tablet TAKE 1 TABLET BY MOUTH TWICE DAILY FOR 10 DAYS 06/15 completed Not Available Not Available Not Available oseltamivir 75 mg capsule Take 1 capsule every day by oral route for 10 days. 06/04 completed Not Available Not Available Not Available triamcinolo ne acetonide 0.1 % topical ointment PRN 06/05 completed Not Available Not Available Not Available clotrimazol e-betametha sone 1 %-0.05 % topical cream 06/05 completed Not Available Not Available Not Available azelastine 137 mcg (0.1 %) nasal spray active Not Available Not Available Not Available methylpredn isolone 4 mg tablets in a dose pack FOLLOW PACKAGE DIRECTION S 11/06 completed Not Available Not Available Not Available cefdinir 300 mg capsule Take 1 capsule every 12 hours by oral route. 11/06 completed Not Available Not Available Not Available fluoxetine 20 mg capsule 06/09 completed Not Available Not Available Not Available fluticasone propionate 50 mcg/actuati on nasal spray,suspe nsion SHAKE LIQUID AND USE 2 SPRAYS IN EACH NOSTRIL DAILY active Not Available Not Available No t Available amoxicillin 875 mg-potassiu m clavulanate 125 mg tablet TAKE 1 TABLET BY MOUTH TWICE DAILY FOR 7 DAYS 11/06 completed Not Available Not Available Not Available clindamycin phosphate 1 % topical solution 06/15 completed Not Available Not Available Not Available cyclobenzap rine 5 mg tablet TAKE 1 TO 2 TABLETS BY MOUTH THREE TIMES DAILY NEEDED, START WITH 5 MG BY MOUTH THREE TIMES NEEDED 06/15 completed Not Available Not Available Not Available Tri-Sprinte c (28) 0.18 mg(7)/0.215 mg(7)/0.25 mg(7)-35 mcg tablet TAKE 1 TABLET BY MOUTH ONCE DAILY 11/06 completed Not Available Not Available Not Available Boostrix Tdap 2.5 Lf unit-8 mcg-5 Lf/0.5 mL intramuscul ar syringe ADM 0.5ML IM UTD 06/30 completed Not Available Not Available Not Available daily 06/05 completed Not Available Not Available Not Available Elinest 0.3 mg-30 mcg tablet TAKE 1 TABLET BY MOUTH ONCE DAILY 11/06 completed Not Available Not Available Not Available Flucelvax Quad (PF) 60 mcg (15 mcg x 4)/0.5 mL IM syringe ADM 0.5ML IM UTD 06/05 completed Not Available Not Available Not Available Vitals Date Recorded Body mass index (BMI) Body height Oxygen saturation Oxygen saturation in Arterial blood by Pulse oximetry Heart rate Body temperature Body weight Systolic blood pressure Diastolic blood pressure Provider Name and Address Organization Details Last Updated DateTime 1 30.5 kg/m2 165.1 cm 98 % 98 % 78 /min 98 [degF] 78852.8 4 g 110 mm[Hg] 70 mm[Hg] Not Available [facility] 3 20:01:43 Date Recorded Body mass index (BMI) Body height Oxygen saturation Oxygen saturation in Arterial blood by Pulse oximetry Heart rate Body temperature Body weight Systolic blood pressure Diastolic blood pressure Provider Name and Address Organization Details Last Updated DateTime 2 30 kg/m2 165.1 cm 98 % 98 % 82 /min 96.3 [degF] 52971.6 3 g 124 mm[Hg] 86 mm[Hg] Not Available [facility] 3 20:01:43 Date Recorded Body height Oxygen saturation Oxygen saturation in Arterial blood by Pulse oximetry Heart rate Body temperature Systolic blood pressure Diastolic blood pressure Provider Name and Address Organization Details Last Updated DateTime 2 165.1 cm 98 % 98 % 90 /min 97.1 [degF] 122 mm[Hg] 70 mm[Hg] Not Available [facility] 3 20:01:43 Date Recorded Body height Body temperature Body mass index (BMI) Body weight Respiratory rate Oxygen saturation Oxygen saturation in Arterial blood by Pulse oximetry Heart rate Systolic blood pressure Diastolic blood pressure Provider Name and Address Organization Details Last Updated DateTime 3 165.1 cm 97.7 [degF] 32 kg/m2 60175.7 4 g 16 /min 99 % 99 % 70 /min 120 mm[Hg] 78 mm[Hg] COLLINS Agudelo [facility] 3 11:40:18 Social History Question Answer Notes LastModified by Organizat ion Details LastModified Time Tobacco Smoking Status Never Smoker COLLINS Agudelo null [facility] 11/06/2022 11:32:46 Do You Have An Advance Directive? No [id number] Information not available 09/23/2022 What Is Your Level Of Alcohol Consumption? Moderate [id number] Information not available 09/23/2022 If You Are , What Was Your Level Of Alcohol Consumption Prior To ? None [email or web address] Information not available 11/06/2022 Do You Wear A Helmet When Biking? No [email or web address] Information not available 11/06/2022 What Is Your Level Of Caffeine Consumption? Heavy [id number] Information not available 09/23/2022 In The 14 Days Before Symptom Onset, Have You Had Close Contact With A Laboratory-confir med COVID-19 While That Case Was Ill? No Information not available 11/06/2022 In The 14 Days Before Symptom Onset, Have You Had Close Contact With A Person Who Is Under Investigation For COVID-19 While That Person Was Ill? No [email or web address] Information not available 11/06/2022 What Type Of Diet Are You Following? REGULAR [id number] Information not available 09/23/2022 What Is The Highest Grade Or Level Of School You Have Completed Or The Highest Degree You Have Received? 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 No [email or web address] Information no t available 11/06/2022 Are There Any Guns Present In Your Home? Yes [email or web address] Information not available 11/06/2022 Do You Use Insect Repellent Routinely? Yes [email or web address] Information not available 11/06/2022 Do You Have A Medical Power Of Health Associate? No [email or web address] Information not available 11/06/2022 Have You Ever Been Counseled For Unhealthy Alcohol Use? No [email or web address] Information not available 11/06/2022 What Is Your Relationship Status? [id number] Information not available 09/23/2022 Do You Use Your Seat Belt Or Car Seat Routinely? Yes Information not available 11/06/2022 Do You Have Smoke And Carbon Monoxide Detectors In Your Home? Yes [email or web address] Information not available 11/06/2022 Are You Passively Exposed To Smoke? No [email or web address] Information no t available 11/06/2022 Are There Any Smokers In Your House? No [email or web address] Information not available 11/06/2022 Do You Feel Stressed (tense, Restless, Nervous, Or Anxious, Or Unable To Sleep At Night)? [id number] [email or web address] Information not available 11/06/2022 Do You Use Any Illicit Or Recreational Drugs? No Information not available 11/06/2022 Do You Use Sunscreen Routinely? Yes [email or web address] Information not available 11/06/2022 Has Tobacco Cessation Counseling Been Provided? No [email or web address] Information not available 11/06/2022 Have You Recently Traveled Abroad? No Information not available 11/06/2022 Do You Have Any Dietary Restrictions? No [email or web address] Information not available 11/06/2022 Do You Or Have You Ever Used Any Other Forms Of Tobacco Or Nicotine? No Information not available 11/06/2022 Sex: Female Functional Status Question Answer Note LastModified by Organizat ion Details LastModified Time What is your exercise level? Occasional [id number] Information not available 09/23/2022 Mental Status None recorded. Family History Relationship Description Onset Age of this Age Resolved Age Notes LastModified by Organization Details LastModified Time Mother General health good [id number] Not available 09/23/2022 20:01:05 Unspecified Relation Malignant tumor of colon [id number] Not available 09/23/2022 20:01:05 Medical History Condition Response SKIN PROBLEMS Y BREAST PROBLEMS Y BACK / NECK PROBLEMS Y Gynecological History Statement/Question Response Abnormal Pap N Date of Last Pap 11/22/2017 Obstetrics History GPAL:G 2 P 0 0 0 0 Immunizations Vaccine Type Date Status Note Provider Nam e and Address Organization Details Recorded Time Influenza, split virus, quadrivalent, PF 06/15/2022 completed Not Available [facility] 3 20:03:09 Influenza, split virus, quadrivalent, PF 06/30/2019 completed Not Available [facility] 3 20:03:09 Past Encounters Encounter ID Performer Location Encounter Start Date Encounter Closed Date Diagnosis/Indication Diagnosis SNOMED-CT Code Diagnosis ICD10 Code Diagnosis Note [id number] [facility] [address] [place] [address] 06/09/2021 00:00:00 06/24/2021 18:48:07 [id number] [facility] [address] [place] [address] 06/15/2022 00:00:00 06/23/2022 21:44:[id number] [facility] [place] [address] [place] [address] 06/23/2022 00:00:00 06/23/2022 19:49:[id number] [facility] [place] [address] [place] [address] 11/06/2022 11:27:43 11/06/2022 11:58:46 Acute pharyngitis 824264871 J02.9 Rx for zpak course. Long-term drug therapy 151067660 Z79.899 routine labs are all due Cholesterol screening 27 2012358 Z13.220 Diabetes m ellitus screening 315046613 Z13.1 Health Concerns Section Related Observation LastModified by Organization Detai ls LastModified Time None Recorded Concern Status LastModified by Organization Details LastModified Time None Recorded Advance Directives Directive N: Payers Encounter Date Sequence Insurance Name Policy Number Policy Norris Covered Member ID Norris Member ID Guarantor Name 11/06/2022 1 [facility]: (PPO) [id number] A Brian Mckenzie [id number] Brian Mckenzie Notes Date Note Type Note Provider Name and Address Organization Details Recorded Time 06/09/2021 text/html Anxiety/Depressi onRep orted bypatient.Severity:de nies suicidal ideations; able to maintain relationships; does not interfere with activities of daily living Context:no major life stressors Associated Symptoms:denies homicidal ideations; no significant weight gain; no significant weight loss; no visual/auditory hallucinations; no delusions; no shortness of breath; mood good; no anxiety; no crying spells; no panic; no isolation; sleeping well; appetite good; energy good; no apathy; maintaining functionality Not Available [facility] 06/24/2021 18:48:07 06/15/2022 text/html Anxiety/Depressi onRep orted bypatient.Severity:de nies suicidal ideations; able to maintain relationships; does not interfere with activities of daily living Context:no major life stressors Associated Symptoms:denies homicidal ideations; no significant weight gain; no significant weight loss; no visual/auditory hallucinations; no delusions; no shortness of breath; mood good; no anxiety; no crying spells; no panic; no isolation; sleeping well; appetite good; energy good; no apathy; maintaining functionality Not Available [facility] 06/23/2022 21:44:19 06/23/2022 text/html EaracheReported bypatient.Location:[facility] Quality:throbbing Severity:worsening Duration:symptoms lasting over 2 weeks Timing:worse Context:no sick contacts; no recent swimming/water in ear; no exposure to second hand smoke; no head trauma; not grinding teeth; no recent air travel Modifying Factors:does not hurt to chew;hurts to lie on, or pull on ear Associated Symptoms:no discharge from the ears; no itching (pruritus); no ear bleeding;hearing loss;popping noise in the ears;ears feel full Not Available [facility] 06/23/2022 19:49:23 11/06/2022 text/html Sore ThroatRepor eric bypatient.Location:[facility] Quality:sharp; sore Severity:pain level 7/10 Duration:started 3 week(s) ago Onset/Timing:worsenin g Context:allergies; sinus infection Alleviating Factors:nothing Aggravating Factors:talking; swallowing Associated Symptoms:no stress; no coughing with sputum; no choking; no throat tickle/itch; no globus sensation; no odynophagia; no dysphagia; no burping; no neck/shoulder muscle tension; no weight loss; no loss of appetite; no fever;dysphagia;hoars eness;neck/shoulder muscle tension(tenderness)No kimi:Went to u/c on 10/19/22 and tested neg for strep but was given abx. CLIFFORD Bridges [address] [place] [address], [place], [address], [facility] 11/20/2022 20:46:29 OBGyn Episode No OBEpisode recorded.
--- OUTSIDE RECORDS SUMMARY | 2024-09-20 13:46 | XMS_ITS | Referral Summary ---
Author Organization [facility] Address [address] [place] [address] Care Team Providers Care Director Business Name Role Phone PremlakeishaAnita [facility] Pr ovider Encounters Date Type Department Care Team Description 09/19/2024 11:30 AM FIELD EXAMINER Office Visit [facility] [place] [address] [place] [id number] Yola Borden NP COVID-19 (Primary Dx); Sore throat from Last 3 Months Allergies No known active allergies Medications norgestimate-eth inyl estradioL (ORTHO TRI-CYCLEN) 0.18/0.215/0.25 mg-35 mcg (28) per tablet Active FLUoxetine (PROzac) 40 mg capsule Take 1 capsule (40 mg total) by mouth daily 2 Active fluticasone propionate (FLONASE) 50 mcg/actuation nasal sprayIndications :Non-recurrent acute suppurative otitis media of both ears without spontaneous rupture of tympanic membranes Administer 2 sprays into each nostril daily 3 each 4 2 Active Active Problems Problem Noted Date Diagnosed Date Well female exam with routine gynecological exam 11/22/2017 Assessment & Plan (11/22/2017 7:37 AM CDT): Pap smear done. Will follow according to ACOG guidelines. Continue with monthly self breast exams. Encounter for screening for malignant neoplasm o f cervix 11/22/2017 Assessment & Plan (11/22/2017 7:36 AM CDT): As above. BMI 28.0-28.9,adult 11/22/2017 Assessment & Plan (11/22/2017 7:38 AM CDT): Weight is unchanged. Discussed the patient's BMI. The BMI is above average; BMI management plan is completed. General weight loss/lifestyle modification strategies discussed (elicit support from others; identify saboteurs; non-food rewards, etc). Elbow pain 01/15/2016 Overview (10/30/2016): Elbow pain Fibrocystic breast changes 12/09/2013 Overview (10/30/2016): DIFFUS CYSTIC MASTOPATHY Mass of breast 10/30/2011 Immunizations Immunization Administration Dates Next Due HPV, Quadrivalent 11/17/2007 Influenza, Trivalent, IM (MDV) 04/25/2015 Td, adsorbed 08/18/2002 Tdap 04/14/2013 Social History Tobacco Use Types Packs/Day Years Used Date Smoking Tobacco: Never Smokeless Tobacco: Never Tobacco Cessation:Counseling Given: Not Answered Alcohol Use Standard Drinks/Week Comments Yes 0 (1 standard drink = 0.6 oz pur e alcohol) Comments No Sex and Gender Information Value Date Recorded Sex Assigned at Not on file Legal Sex Female 12:50 AM FIELD EXAMINER Gender Identity Not on file Sexual Orientation Not on file 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 file Not on file Last Filed Vital Signs Vital Sign Reading Time Taken Comments Blood Pressure 128/84 09/19/2024 11:16 AM FIELD EXAMINER Pulse 99 09/19/2024 11:16 AM FIELD EXAMINER Temperature 37.1 C (98.7 F) 09/19/2024 11:16 AM FIELD EXAMINER Respiratory Rate 17 09/19/2024 11:16 AM FIELD EXAMINER Oxygen Saturation 98% 09/19/2024 11:16 AM FIELD EXAMINER Inhaled Oxygen Concentration - - Weight 93 kg (205 lb) 09/19/2024 11:16 AM FIELD EXAMINER Height 165.1 cm (5' 5 ) 09/19/2024 11:16 AM FIELD EXAMINER Body Mass Index 34.11 09/19/2024 11:16 AM FIELD EXAMINER Plan of Treatment Not on file Procedures Procedure Name Priority Date/Time Associated Diagnosis Comments POC INFLUENZA A/B, COVID-19 ANTIGEN Routine 09/19/2024 11:52 AM FIELD EXAMINER COVID-19 POCT RAPID STREP Routine 09/19/2024 11:3 3 AM FIELD EXAMINER COVID-19 GENITAL FLUID PAP SMEAR, THIN PREP WITH HPV EVALUATION Routine 10/19/2016 12:00 AM CDT SERUM HEPATITIS C AB Routine 09/29/2014 3:31 AM FIELD EXAMINER from Last 3 Months or Most Recently Relevant to Health Maintenance Results * (ABNORMAL) POC Influenza A/B, COVID-19 antigen (09/19/2024 11:52 AM FIELD EXAMINER) Pathologist [facility] Influenza A Ag, POC Negative Negative [facility] Influenza B Ag, POC Negative Negative [facility] COVID-19 Ag POC Positive(A) Presumptive Negative, Invalid [facility] Nasal 09/19/2024 11:5 2 AM FIELD EXAMINER Yola Borden NP POINT OF CARE TEST ORDERABLES Fi nal Result Performing Organization Address City/State/[facility] Co de Phone Number [facility] [address] [place] [address] * POCT rapid strep A (09/19/2024 11:33 AM FIELD EXAMINER) Rapid Strep A, POC Negative Negative Swab 09/19/2024 11:3 3 AM FIELD EXAMINER us Yola Borden NP POINT OF CARE TEST ORDERABLES Fi nal Result * Genital fluid pap smear, thin prep with HPV evaluation (10/19/2016 12:00 AM CDT) Clinical information SEE NOTE CDR HISTORICAL RESULTS Comment:Information not prov ided LMP SEE NOTE CDR HISTORICAL RESULTS Comment:INFORMATION NOT PROV IDED Previous Pap SEE NOTE CDR HISTORICAL RESULTS Comment:INFORMATION NOT PROV IDED Previous biopsy SEE NOTE CDR HISTORICAL RESULTS Comment:INFORMATION NOT PROV IDED Referral specimen source SEE NOTE CDR HISTORICAL RESULTS Comment:Cervix, Endocervix Statement of adequacy SEE NOTE CDR HISTORICAL RESULTS Comment: Satisfactory for evaluation. Endocervical/transformation zone component present. Age and/or menstrual status not provided Referral specimen, interp SEE NOTE CDR HISTORICAL RESULTS Comment:Negative for intraep ithelial lesion or malignancy. Variable comment SEE NOTE CDR HISTORICAL RESULTS Comment: This Pap test has been evaluated with computer assisted technology. Genital 10/19/2016 Historical Provider LAB CYTOLOGY ORDERABLES F inal Result Performing Organization Address City/[facility] Co de Phone Number CDR HISTORICAL RESULTS * Serum Hepatitis C ab (09/29/2014 3:31 AM FIELD EXAMINER) HCV ab NON-REACTI VE NON-REACTI VE HISTORICAL RESULTS Hepatitis signal to cutoff ratio 0.01 <1.00 HISTORICAL RESULTS Serum 09/29/2014 3:31 AM FIELD EXAMINER Narrative HISTORICAL RESULTS - 10/05/2014 6:00 AM CDT Test performed at [facility] [address] [place] [address] Director: EVELYN ARTEAGA DO,MPH us Historical Provider LAB BLOOD ORDERABLES Clarice l Result Performing Organization Address City/[facility] Co de Phone Number HISTORICAL RESULTS from Last 3 Months or Most Recently Relevant to Health Maintenance Additional Health Concerns Infection Onset Date Last Indicated COVID19 09/19/2024 09/19/2024 Insurance [facility] [place] [address] Care Teams Director Business Relationship Specialty Start Date End Date Anita Silva PA PCP - General Physician Building Drafter 05/22/22
--- OUTSIDE RECORDS SUMMARY | 2024-09-20 13:46 | XMS_ITS | Encounter Summary ---
Author Organization [facility] Address [address] [place] [address] Care Team Providers Care Adult Education Manager Name Role Phone Josselinrivera Anita HORTON Primary Care Pr ovider Reason for Visit * Reason Comments Sore Throat Pt is here today wit h a sore throat and a headache, onset is last night for the sore throat and a few days for the headache. OTC ibuprofen. Encounter Details Date Type Department Care Team (Late st Contact Info) Description 09/19/2024 11:30 AM SHIPBUILDING DRAFTSPERSON Office Visit [facility] [place] [address] [place] [phone] Yola Borden NP [address] [place] [address] COVID-19 (Primary Dx); Sore throat Social History Tobacco Use Types Packs/Day Years Used Date Smoking Tobacco: Never Smokeless Tobacco: Never Alcohol Use Standard Drinks/Week Comments Yes 0 (1 standard drink = 0.6 oz pur e alcohol) Comments No Sex and Gender Information Value Date Recorded Sex Assigned at Not on file Legal Sex Female 12:50 AM SHIPBUILDING DRAFTSPERSON Gender Identity Not on file Sexual Orientation Not on file 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 file Not on file documented as of this encounter Last Filed Vital Signs Vital Sign Reading Time Taken Comments Blood Pressure 128/84 09/19/2024 11:16 AM SHIPBUILDING DRAFTSPERSON Pulse 99 09/19/2024 11:16 AM SHIPBUILDING DRAFTSPERSON Temperature 37.1 C (98.7 F) 09/19/2024 11:16 AM SHIPBUILDING DRAFTSPERSON Respiratory Rate 17 09/19/2024 11:16 AM SHIPBUILDING DRAFTSPERSON Oxygen Saturation 98% 09/19/2024 11:16 AM SHIPBUILDING DRAFTSPERSON Inhaled Oxygen Concentration - - Weight 93 kg (205 lb) 09/19/2024 11:16 AM SHIPBUILDING DRAFTSPERSON Height 165.1 cm (5' 5 ) 09/19/2024 11:16 AM SHIPBUILDING DRAFTSPERSON Body Mass Index 34.11 09/19/2024 11:16 AM SHIPBUILDING DRAFTSPERSON documented in this encounter Patient Instructions * Patient Instructions* Yola Borden NP - 09/19/2024 11:30 AM SHIPBUILDING DRAFTSPERSON Recommendations and Information The main treatment for respiratory infections of any kind (including COVID) is to rest, eat healthy, and drink plenty of fluids. Cold symptoms will likely last anywhere from 7-10 days with symptoms feeling much worse on days 3-5. Antibiotic medications do not cure a cold nor do antibiotic medications help to shorten the symptoms of viral illness. The following may help you feel better: Over the counter antihistamine such as loratadine (Claritin) or cetirizine (Zyrtec) to reduce secretions. The D formula includes pseudoephedrine and can be helpful as a decongestant but should not be used if you have a history of high blood pressure. Tessalon if prescribed for cough. Albuterol inhaler if prescribed for shortness of breath, cough, or wheezing. Use you albuterol inhaler or nebulizer every 4 hours for the next 48 hours, then every 4-6 hours as needed. Don't smoke and avoid second hand smoke. Suck on cough drops or hard candies to soothe a dry or sore throat. Cough drops won't stop your cough, but they may make your throat feel better. Over the counter loratadine (Claritin) or cetirizine (Zyrtec) to reduce secretions. Mucinex to thin secretions Breathe moist air from a humidifier, a hot shower, or a sink filled with hot water. The heat and moisture can help keep mucus in your airways moist so you can cough it out easily. Use nonprescription medicine, such as acetaminophen, ibuprofen, or aspirin, to relieve fever and body aches. Don't give aspirin to anyone younger than age 20. Rest more than usual. Drink plenty of fluids so that you do not become dehydrated and to keep mucous thin. Use an ysar-opw-nsjkjvw cough medicine such as Delsym or Robitussin. (Cough medicines may not be safe for young children or for people who have certain health problems.) Cough suppressants may help you to stop coughing. Expectorants, such as Mucinex, can help you bring up mucus when you cough. Follow up with primary care physician in 1 week, or sooner if symptoms worsen. If you experience worsening shortness of breath or fever that do not improve with Tylenol/Motrin, go to the Emergency Room. BUILDING DRAFTSPERSON documented in this encounter Progress Notes * Yola Borden NP - 09/19/2024 11:30 AM CST Images from the original note were not included. This patient has verbally consented to recording this visit in order to utilize AI technology in generating this note. Subjective/Objective Patient ID: Brian Mckenzie is a 34 y.o. female. Chief Complaint Sore Throat (Pt is here today with a sore throat and a headache, onset is last night for the sore throat and a few days for the headache. OTC ibuprofen.) Sore Throat History of Present Illness Brian Mckenzie is a 34 year old female who presents with a sore throat and headache. She has been experiencing a sore throat that began last night, described as severe with a sensationof dryness and a metallic taste, similar to 'tasting like blood'. Despite the discomfort, she is able to swallow both water and food. Her fluid intake has increased due to the dryness in her throat. She has had a headache persisting for the past couple of days. No fever has been noted since the onset of symptoms. She has been taking ibuprofen to manage the pain. She reports body aches and back pain accompanying her other symptoms. No fever has been noted. She experiences occasional coughing, which she describes as 'mucusy', and feels some chest congestion. No new chest pain or shortness of breath. Review of Systems HENT: Positive for sore throat. All systems reviewed and are negative or non contributory for this patient's presentation today other than as stated in the HPI. Physical Exam Vitals reviewed. Constitutional: General: She is not in acute distress. Appearance: Normal appearance. She is well-developed. She is not ill-appearing. HENT: Head: Normocephalic. Right Ear: Tympanic membrane, ear canal and external ear normal. Left Ear: Tympanic membrane, ear canal and external ear normal. Nose: No congestion or rhinorrhea. Right Sinus: No maxillary sinus tenderness or frontal sinus tenderness. Left Sinus: No maxillary sinus tenderness or frontal sinus tenderness. Mouth/Throat: Lips: [place]. Mouth: Mucous membranes are moist. Pharynx: Oropharynx is clear. Posterior oropharyngeal erythema present. Tonsils: 2+ on the right. 2+ on the left. Eyes: General: Right eye: No discharge. Left eye: No discharge. Conjunctiva/sclera: Conjunctivae normal. Cardiovascular: Rate and Rhythm: Normal rate and regular rhythm. Pulmonary: Effort: Pulmonary effort is normal. No respiratory distress. Breath sounds: Normal breath sounds and air entry. Abdominal: Tenderness: There is no abdominal tenderness. Musculoskeletal: General: Normal range of motion. Cervical back: Neck supple. Lymphadenopathy: Head: Right side of head: No tonsillar adenopathy. Left side of head: No tonsillar adenopathy. Cervical: No cervical adenopathy. Skin: General: Skin is warm and dry. Findings: No rash. Neurological: Mental Status: She is alert and oriented to person, place, and time. Mental status is at baseline. Psychiatric: Attention and Perception: Attention normal. Mood and Affect: Mood normal. Behavior: Behavior normal. Behavior is cooperative. Thought Content: Thought content normal. Judgment: Judgment normal. Vitals: 09/19/24 1116 BP: 128/84 Pulse: 99 Resp: 17 Temp: 37.1 ??C (98.7 ??F) SpO2: 98% Weight: 93 kg (205 lb) Height: 165.1 cm (5' 5 ) Assessment/Plan Assessment & Plan COVID-19 Positive test result. Symptoms include sore throat, headache, body aches, and dry throat. No fever or difficulty swallowing. -Continue kgeu-gdz-iddsoca medications for symptom management (Tylenol, ibuprofen). -Gargle with warm salt water for sore throat. -Ensure adequate rest and hydration. -Return to work once fever-free for 24 hours and general improvement in symptoms, per CDC guidelines. -Return for medical evaluation if symptoms worsen or persist beyond 7-10 days. Sore Throat Likely secondary to COVID-19 infection. Strep test negative. -Manage symptomatically as above. Diagnoses and all orders for this visit: COVID-19 (Primary) - POCT rapid strep A - POC Influenza A/B, COVID-19 antigen Sore throat Recent Results (from the past 4 hours) POCT rapid strep A Collection Time: 09/19/24 11:33 AM Result Value Ref Range Rapid Strep A, POC Negative Negative POC Influenza A/B, COVID-19 antigen Collection Time: 09/19/24 11:52 AM Result Value Ref Range Influenza A Ag, POC Negative Negative Influenza B Ag, POC Negative Negative COVID-19 Ag POC Positive (A) Presumptive Negative, Invalid Patient Education: Disposition Treatment plan including expectations, follow up, and return precautions discussed with patient/parent, verbalizes understanding. Medication dosage, use, and potential adverse reactions discussed with patient/parent. Advised to follow up with PCP if symptoms do not resolve as expected or sooner if condition worsens. Signs/symptoms warranting ER evaluation reviewed. Patient and/or guardian was given an opportunity to ask questions, questions answered. Yola Borden NP BUILDING DRAFTSPERSON documented in this encounter Plan of Treatment Not on file documented as of this encounter Procedures Procedure Name Priority Date/Time Associated Diagnosis Comments POC INFLUENZA A/B, COVID-19 ANTIGEN Routine 09/19/2024 11:52 AM SHIPBUILDING DRAFTSPERSON COVID-19 POCT RAPID STREP Routine 09/19/2024 11:3 3 AM SHIPBUILDING DRAFTSPERSON COVID-19 documented in this encounter Results * (ABNORMAL) POC Influenza A/B, COVID-19 antigen (09/19/2024 11:52 AM SHIPBUILDING DRAFTSPERSON) [facility] Influenza A Ag, POC Negative Negative [facility] Influenza B Ag, POC Negative Negative [facility] COVID-19 Ag POC Positive(A) Presumptive Negative, Invalid [facility] Nasal 09/19/2024 11:5 2 AM SHIPBUILDING DRAFTSPERSON Yola Borden NP POINT OF CARE TEST ORDERABLES Fi nal Result [facility] [address] [place] [address], [facility] * POCT rapid strep A (09/19/2024 11:33 AM SHIPBUILDING DRAFTSPERSON) [facility] Rapid Strep A, POC Negative Negative Swab 09/19/2024 11:3 3 AM SHIPBUILDING DRAFTSPERSON Yola Borden NP POINT OF CARE TEST ORDERABLES Fi nal Result documented in this encounter Visit Diagnoses Diagnosis COVID-19- Primary Sore throat Acute pharyngitis documented in this encounter Additional Health Concerns Infection Onset Date Last Indicated Resolved Time COVID: Suspected 09/19/2024 09/19/2024 09/19/2024 11:52 AM SHIPBUILDING DRAFTSPERSON COVID19 09/19/2024 09/19/2024 documented as of this encounter Care Teams Adult Education Manager Relationship Specialty Start Date End Date Anita Silva PA PCP - General Physician Physical Education Professor 05/22/22 documented as of this encounter
--- OUTSIDE RECORDS SUMMARY | 2024-09-20 13:46 | XMS_ITS | Clinical Summary ---
Author Organization [facility] Building [address] Address [address] [place] [address] Care Team Providers Care Card Filer Name Role Phone Anita Silva Primary Care Pr ovider Allergies No known active allergies Medications norgestimate-eth [...] DIFFUS CYSTIC MASTOPATHY Mass of breast 10/30/2011 Encounters Date Type Department Care Team Description 09/19/2024 11:30 AM APPLICATIONS PROJECT MANAGER Office Visit [facility] at [place] [address] [place] [address] Yola Borden, JUANIS COVID-19 (Primary Dx); Sore throat from Last 3 Months Immunizations Immunization Administration Dates Next Due HPV, Quadrivalent 11/17/2007 Influenza, Trivalent, IM (MDV) 04/25/2015 Td, adsorbed 08/18/2002 Tdap 04/14/2013 Surgical History Surgery Date Site/Laterality Comments OTHER SURGICAL HISTORY Breast nodule-R 07/02: monitor-consider excision if grows in size OTHER SURGICAL HISTORY lumpectomy-R breast: [facility] BREAST LUMPECTOMY Right Breast lumpectomy OTHER SURGICAL HISTORY 2014 : Medical History Medical History Date Comments Hx Other Medical Breast nodule-R 07/02 Hx Other Medical 2008 lumpectomy-R br [place] Acquired scoliosis Scoliosis Hx Other Medical Herniated disc; Comments: AWM 09/21/2014 - Hx Other Medical manag ement; Outcome: Live infant Hx Other Medical ; Outc ome: Live infant Family History Medical History Relation Name Comments Other Father Alive and well; Breast cancer Father's Sister Cancer, frandy ast; Colon cancer Maternal Grandfather Cancer, colon; Cause of : Cancer, colon Heart disease Maternal Grandfather Cardio vascular disease; Other Mother Alive and well; Cancer Other 1 Family history of Cancer; Osteoarthritis Other 2 Family histor y of Osteoarthritis; Colon cancer Paternal Grandmother Cancer, colon; Other Sister 2 Alive and well; Relation Name Status Comments Father Alive Father's Sister Maternal Grandfather Mother Alive Other 1 Other 2 Paternal Grandmother Sister 1 Alive Sister 2 Social History Tobacco Use Types Packs/Day Years Used Date Smoking Tobacco: Never Smokeless Tobacco: Never Tobacco Cessation:Counseling Given: Not Answered Alcohol Use Standard Drinks/Week Comments Yes 0 (1 standard drink = 0.6 oz pur e alcohol) Comments No Sex and Gender Information Value Date Recorded Sex Assigned at Not on file Legal Sex Female 12:50 AM APPLICATIONS PROJECT MANAGER Gender Identity Not on file Sexual Orientation Not on file 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 file Not on file Obstetrics History Last Filed Vital Signs Vital Sign Reading Time Taken Comments Blood Pressure 128/84 09/19/2024 11:16 AM APPLICATIONS PROJECT MANAGER Pulse 99 09/19/2024 11:16 AM APPLICATIONS PROJECT MANAGER Temperature 37.1 C (98.7 F) 09/19/2024 11:16 AM APPLICATIONS PROJECT MANAGER Respiratory Rate 17 09/19/2024 11:16 AM APPLICATIONS PROJECT MANAGER Oxygen Saturation 98% 09/19/2024 11:16 AM APPLICATIONS PROJECT MANAGER Inhaled Oxygen Concentration - - Weight 93 kg (205 lb) 09/19/2024 11:16 AM APPLICATIONS PROJECT MANAGER Height 165.1 cm (5' 5 ) 09/19/2024 11:16 AM APPLICATIONS PROJECT MANAGER Body Mass Index 34.11 09/19/2024 11:16 AM APPLICATIONS PROJECT MANAGER Plan of Treatment Health Maintenance Due Date Last Done Comments Varicella Vaccines (1 of 2 - 13+ 2-dose series) 2002 Hepatitis B Screening 2007 HPV Vaccines (2 - 3-dose series) 12/15/2007 11/17/2007 Cervical Cancer Screening 10/19/2017 10/19/2016 Depression Screening 11/22/2018 11/22/2017 Regular Well Visit/Exam 18-64 11/22/2018 11/22/2017 DTaP/Tdap/Td Vaccine (4 - Td or Tdap) 07/28/2028 07/28/2018, 04/18/2015, 04/14/2013, Additional history exists Hepatitis C Screening Completed 09/29/2014 Influenza Vaccine Discontinued 06/15/2022, , 06/30/2019, Additional history exists Pneumococcal vaccine <65 Aged Out No longer eligible based on patient's age to complete this topic Procedures Procedure Name Priority Date/Time Associated Diagnosis Comments POC INFLUENZA A/B, COVID-19 ANTIGEN Routine 09/19/2024 11:52 AM APPLICATIONS PROJECT MANAGER COVID-19 POCT RAPID STREP Routine 09/19/2024 11:3 3 AM APPLICATIONS PROJECT MANAGER COVID-19 GENITAL FLUID PAP SMEAR, THIN PREP WITH HPV EVALUATION Routine 10/19/2016 12:00 AM CDT SERUM HEPATITIS C AB Routine 09/29/2014 3:31 AM APPLICATIONS PROJECT MANAGER from Last 3 Months or Most Recently Relevant to Health Maintenance Results * (ABNORMAL) POC Influenza A/B, COVID-19 antigen (09/19/2024 11:52 AM APPLICATIONS PROJECT MANAGER) Pathologist [facility] Influenza A Ag, POC Negative Negative [facility] Influenza B Ag, POC Negative Negative [facility] COVID-19 Ag POC Positive(A) Presumptive Negative, Invalid [facility] Nasal 09/19/2024 11:5 2 AM APPLICATIONS PROJECT MANAGER Yola Borden NP POINT OF CARE TEST ORDERABLES Fi nal Result [facility] [address] [place] [address], [facility] * POCT rapid strep A (09/19/2024 11:33 AM APPLICATIONS PROJECT MANAGER) [facility] Rapid Strep A, POC Negative Negative Swab 09/19/2024 11:3 3 AM APPLICATIONS PROJECT MANAGER Yola Borden NP POINT OF CARE TEST ORDERABLES Fi nal Result * Genital fluid pap smear, thin prep with HPV evaluation (10/19/2016 12:00 AM CDT) Pathologist [facility] Clinical information SEE NOTE CDR HISTORICAL RESULTS [...] ORDERABLES F inal Result Performing Organization Address City/[facility] Co de Phone Number CDR HISTORICAL RESULTS * Serum Hepatitis C ab (09/29/2014 3:31 AM APPLICATIONS PROJECT MANAGER) HCV ab NON-REACTI VE NON-REACTI VE HISTORICAL RESULTS Hepatitis signal to cutoff ratio 0.01 <1.00 HISTORICAL RESULTS Serum 09/29/2014 3:31 AM APPLICATIONS PROJECT MANAGER Narrative HISTORICAL RESULTS - 10/05/2014 6:00 AM CDT Test performed at [facility] [place] [address] [place] [address] Director: EVELYN ARTEAGA DO,MPH Historical Provider LAB BLOOD ORDERABLES Clarice l Result Performing Organization Address [facility] de Phone Number HISTORICAL RESULTS from Last 3 Months or Most Recently Relevant to Health Maintenance Additional Health Concerns Infection Onset Date Last Indicated COVID19 09/19/2024 09/19/2024 Insurance [facility] [employer] Care Teams Card Filer Relationship Specialty Start Date End Date Anita Silva PA PCP - General Physician Ad Compositor 05/22/22
--- OUTSIDE RECORDS SUMMARY | 2024-09-20 13:46 | XMS_ITS | Data Portability ---
Author Organization [place] [facility]- Address # [address] [facility] [place] [address] Assessment No assessment recorded. Plan of Treatment Reminders Order Date Submit Date Provider Last Modified By Organization Details Last Modified Time Details Appointments None record ed. Lab None record ed. Referral None record ed. Procedures None record ed. Surgeries None record ed. Imaging None record ed. Medication Orders None record ed. Patient TargetsNo targets recorded. Patient InstructionsNo instructions recorded. Reason for Referral None Reported. Problems No Known Problems Medical Equipment None Reported. Allergies No known drug allergies Medications Not known to be on any medication Vitals None Recorded Social History None recorded. Functional Status None recorded. Mental Status None recorded. Family History Nothing Reported. Medical History No medical history recorded. Gynecological HistoryNo gynecological history recorded. Obstetrics History GPAL:G 0 P 0 0 0 0 Immunizations Vaccine Type Date Status Note Provider Nam e and Address Organization Details Recorded Time Influenza, split virus, quadrivalent, PF 04/21/2021 completed Brittni Bejarano [place], [place] - [facility], 04/21/2021 18:00:15 Past Encounters Encounter ID Performer Location Encounter Start Date Encounter Closed Date Diagnosis/Indication Diagnosis SNOMED-CT Code Diagnosis ICD10 Code Diagnosis Note [id number] [facility] [address] [place] [address],[facility] [address] [place] [address] 04/21/2021 17:45:50 04/22/2021 17:21:10 Active or passive immunization [id number] Z23 Health Concerns Section Related Observation LastModified by Organization Detai ls LastModified Time None Recorded Concern Status LastModified by Organization Details LastModified Time None Recorded Advance Directives Directive None Recorded Payers Encounter Date Sequence Insurance Name Policy Number Policy Norris Covered Member ID Norris Member ID Guarantor Name 04/21/2021 1 BCJORGE [place]: SYDNIE PERRIN (PPO) [id number] Justin Mckenzie [id number] Justin Mckenzie OBGyn Episode No OBEpisode recorded.
== END 2024-09-20 12:05 | disposition home or self-care (01) ==
LOC: ANHIMG 12:06
PROVIDERS: PCP Physician Assistant; Visit Provider Obstetrics & Gynecology
DX: N63.0 Unspecified lump in unspecified breast (principal); R92.8 Other abnormal and inconclusive findings on diagnostic imaging of breast
CPT/HCPCS: 76642; 77062; 77066; G0279

== ENCOUNTER 2025-03-20 10:21 | Outpatient (CLI) | payer OTHER, SELFPAY ==
--- NOTE | ~2025-03-20 | MMUS_ITS ---
EXAMINATION: MM diagnostic elva LT w pedro, US breast LT limited INDICATION: 35-year old female; BI-RADS 3, short-term follow-up of probably benign Left breast focal asymmetry felt to represent postsurgical changes. Patient status post bilateral reduction surgery. COMPARISON: 09/20/2024 and 01/08/2024 TECHNIQUE: Digital breast tomosynthesis True lateral, MLO, CC and spot compression CC and MLO views of the LEFT breast were obtained with computer- aided detection to assist in interpretation of the study. MAMMOGRAM FINDINGS: There are scattered areas of fibroglandular density. The focal asymmetry of concern in the posterior central left breast reidentified has not significantly changed in the interval. No new dominant mass, area of architectural distortion or abnormal calcification seen. LEFT BREAST ULTRASOUND FINDINGS: Targeted evaluation of the area of concern was completed. There is a 0.9 cm Hypoechoic area at 6:00 location 9 cm from the nipple in the LEFT breast redemonstrated is unchanged. In addition, there is an hypoechoic area with no internal vascularity seen at 6:00, 9 cm from the nipple, lateral to the surgical scar that measure 1.1 x 1.5 cm. IMPRESSION: Probable Benign LEFT breast hypoechoic lesions compatible with areas of fat necrosis related to postsurgical changes. RECOMMENDATION: 6 month follow-up diagnostic BILATERAL mammogram and LEFT breast ultrasound. BI-RADS 3, PROBABLY BENIGN Reviewed, dictated and finalized at location B. IMPRESSION: Probable Benign LEFT breast hypoechoic lesions compatible with areas of fat nec rosis related to postsurgical changes. RECOMMENDATION: 6 month follow-up diagnostic BILATERAL mammogram and LEFT breast ultrasound. BI-RADS 3, PROBABLY BENIGN
--- OUTSIDE RECORDS SUMMARY | 2025-03-20 10:50 | XMS_ITS | Clinical Summary ---
Author Organization [facility] Address [address] [place] [address] Phone Care Team Providers Care Painter Airbrush Name Role Phone Provider, None Primary Care [...] Comments Blood Pressure 118/74 07/07/2020 10:20 AM CRYSTAL CALIBRATOR Pulse 86 07/07/2020 10:20 AM CRYSTAL CALIBRATOR Temperature 37 C (98.6 F) 07/07/2020 10:20 AM CRYSTAL CALIBRATOR Respiratory Rate 18 07/07/2020 10:20 AM CRYSTAL CALIBRATOR Oxygen Saturation 98% 07/07/2020 10:20 AM CRYSTAL CALIBRATOR Inhaled Oxygen Concentration - - Weight 80.7 kg (178 lb) 07/07/2020 10:20 AM CRYSTAL CALIBRATOR Height - - Body Mass Index - - Plan of Treatment Health Maintenance Due Date Last Done Comments Hepatitis C Virus (HCV) Screening 1989 Hepatitis B Immunization (1 of 3 - 19+ 3-dose series) 02/21/2008 Pap Smear 2010 Human Papillomavirus (HPV) Immunization (1 - 3-dose SCDM series) 02/21/2016 Cervical Cancer Screening (CCS) 2019 HPV/Cotest 2019 SARS-COV-2 Immunization ( season) 2024 11/10/2020, 10/19/2020 Influenza Immunization (#1) 03/26/202504/25, 05/07/2018, 05/17/2015 Respiratory Syncytial Virus (RSV) Immunization (Adult) (1 [...] patient's age to complete this topic Insurance [facility] Care Teams Painter Airbrush Relationship Specialty Start Date End Date Provider, None [place] PCP - General 07/09/20
--- OUTSIDE RECORDS SUMMARY | 2025-03-20 10:50 | XMS_ITS | Clinical Summary ---
Author Organization [facility] Address [address] [place] [address] Care Team Providers Care Card Grinder Helper Name Role Phone Anita Silva Primary Care [...] nostril daily 3 each 4 2 Active fluticasone propionate (FLONASE) 50 mcg/actuation nasal sprayIndications :Right acute serous otitis media, recurrence not specified Administer 2 sprays into each nostril daily 1 each 5 Active Active Problems Problem Noted Date Diagnosed [...] in size OTHER SURGICAL HISTORY lumpectomy-R breast: [facility] BREAST LUMPECTOMY Right Breast lumpectomy OTHER SURGICAL HISTORY 2014 : Medical History Medical History Date Comments Hx Other Medical Breast nodule-R 07/02 Hx Other Medical 2009 lumpectomy-R [place] Acquired scoliosis Scoliosis Hx Other Medical Herniated disc; Comments: AWM 09/21/2014 - Hx Other Medical manag ement; Outcome: Live Hx Other Medical ; Outc ome: Live Family History Medical History Relation Name Comments [...] on file 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 Gender Identity Not on file Sexual Orientation Not on file 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 file Not on file Obstetrics History Last Filed Vital Signs Vital Sign Reading Time Taken Comments Blood Pressure 118/72 09/23/2024 10:20 AM BUS VAN DRIVER Pulse 108 09/23/2024 10:20 AM BUS VAN DRIVER Temperature 36.3 C (97.4 F) 09/23/2024 10:20 AM BUS VAN DRIVER Respiratory Rate 18 09/23/2024 10:20 AM BUS VAN DRIVER Oxygen Saturation 96% 09/23/2024 10:20 AM BUS VAN DRIVER Inhaled Oxygen Concentration - - Weight 93 kg (205 lb) 09/23/2024 10:20 AM BUS VAN DRIVER Height 165.1 cm (5' 5) 09/23/2024 10:20 AM BUS VAN DRIVER Body Mass Index 34.11 09/23/2024 10:20 AM BUS VAN DRIVER Plan of Treatment Health Maintenance Due Date [...] Procedure Name Priority Date/Time Associated Diagnosis Comments GENITAL FLUID PAP SMEAR, THIN PREP WITH HPV EVALUATION Routine 10/19/2016 12:00 AM CDT SERUM HEPATITIS C AB Routine 09/29/2014 3:31 AM BUS VAN DRIVER from Last 3 Months or Most Recently Relevant to Health Maintenance Results * Genital fluid pap smear, thin prep with HPV evaluation (10/19/2016 12:00 AM CDT) Pathologist [facility] Clinical information SEE NOTE CDR HISTORICAL RESULTS [...] ORDERABLES F inal Result Performing Organization Address [facility] Co de Phone Number CDR HISTORICAL RESULTS * Serum Hepatitis C ab (09/29/2014 3:31 AM BUS VAN DRIVER) Pathologist [facility] HCV ab NON-REACTI VE NON-REACTI VE HISTORICAL RESULTS Hepatitis signal to cutoff ratio 0.01 <1.00 HISTORICAL RESULTS Serum 09/29/2014 3:31 AM BUS VAN DRIVER Narrative HISTORICAL RESULTS - 10/05/2014 6:00 AM CDT [facility] [address] [place] [address] Director: EVELYN ARTEAGA DO,MPH us Historical Provider LAB BLOOD ORDERABLES Clarice l Result Performing Organization Address City/[facility] Co de Phone Number HISTORICAL RESULTS from Last 3 Months or Most Recently Relevant to Health Maintenance Insurance [facility] H[facility]/PPO Address: [facility] [address] [place] [id number] Care Teams Card Grinder Helper Relationship Specialty Start Date End Date Anita Silva PA PCP - General Physician Junior Net Developer 05/22/22
--- OUTSIDE RECORDS SUMMARY | 2025-03-20 10:50 | XMS_ITS | Encounter Summary ---
Author Organization [facility] Address [address] [place] [address] Phone Care Team Providers Care Aerospace Medicine Physician Name Role Phone Arlette Lim NP Primary Care Provider [phone]- [phone] Anita Silva Primary Care Pr ovider Encounter Details Date Type Department Care Team (Late st Contact Info) Description 11/22/2017 Orders Only [facility] ProviderMeme MD [facility] [place] [id number] Social History Tobacco Use Types Packs/Day Years Used Date Smoking Tobacco: Never Smokeless Tobacco: Never Alcohol Use Standard Drinks/Week Comments Yes 0 (1 standard drink = 0.6 oz pur e alcohol) Comments No Sex and Gender Information Value Date Recorded Sex Assigned at Not on file Legal Sex Female 12:50 AM ADVICE LINE RN Gender Identity Not on file Sexual Orientation [...] COVID: Suspected 07/11/2020 07/11/2020 07/12/2020 12:53 AM ADVICE LINE RN Respiratory Infection (HEIKE), contact + droplet Comment:Automatically added due to negative COVID-19 result. 07/12/2020 07/12/2020 07/26/2020 3:0 5 AM ADVICE LINE RN MRSA Comment:L nostril wd. 08/13/21 08/13/2021 08/13/2021 02/09/2022 3:05 AM CDT COVID: Suspected 05/22/2022 05/22/2022 05/22/2022 11:40 AM CDT COVID: Suspected 05/22/2022 05/22/2022 05/22/2022 5:43 PM CDT COVID: Suspected 09/19/2024 09/19/2024 09/19/2024 11:52 AM ADVICE LINE RN COVID19 09/19/2024 09/19/2024 09/29/2024 3:05 AM ADVICE LINE RN documented as of this encounter Care Teams Aerospace Medicine Physician Relationship Specialty [place] [id number] [address] PCP - General 10/23/16 05/21/22 [place] [address] [address] PCP - General Physician Medical Claims Analyst 05/22/22 documented as of this encounter
--- OUTSIDE RECORDS SUMMARY | 2025-03-20 10:50 | XMS_ITS | Clinical Summary ---
Author Organization [facility] Address [address] [place] [address] Care Team Providers Care Bottle Blower Name Role Phone Unavailable Primary Care Provider Unavailabl e Social History Tobacco Use Types Packs/Day Years Used Date Smoking Tobacco: Never Assessed Comments Unknown Sex and Gender Information Value Date Recorded Sex Assigned at Not on file Legal Sex Female 11:23 AM CDT Gender Identity Not on file Sexual Orientation Not on file Plan of Treatment Health Maintenance Due Date Last Done Comments HPV VACCINES (2 - 3-dose series) 12/15/2007 11/17/19 08 HEPATITIS B VACCINES (1 of 3 - 19+ 3-dose series) 02/21/2008 HPV/Cotest (21-29) 2010 CERVICAL CANCER SCREENING 2019 HPV/Cotest (30-65) 2019 PAP SMEAR 2019 DTAP/TDAP/TD VACCINES (2 - T d or Tdap) 04/14/2023 04/14/2013 INFLUENZA VACCINE (#1) 2025 2, 06/30/2019, 04/25/2015 Insurance [facility] [employer] CHOICE
== END 2025-03-20 10:22 | disposition home or self-care (01) ==
PROVIDERS: PCP Physician Assistant; Visit Provider Obstetrics & Gynecology
DX: R92.8 Other abnormal and inconclusive findings on diagnostic imaging of breast (principal)
CPT/HCPCS: 76642; 77061; 77065; G0279